=== PATIENT | female | born 1955 | race American Indian/Alaskan Native ===

== ENCOUNTER 2019-12-20 12:27 | Observation (INO) | payer BC, MEDICARE ==
--- NOTE | 2019-12-20 13:10 | Emergency Department Report ---
HPI - General Chief Complaint: Seizure Time Seen by Provider: 12/20/19 12:55 - HPI HPI: Room 4 The patient is a 64-year-old female present with a chief complaint of slurred speech. Patient was a her senior living when she reportedly appeared to have a localized seizure in the left upper extremity. The patient was found to have an Accu-Chek of 68 and reportedly had an SPO2 of 86% on room air. Patient was placed on 3 L nasal cannula by EMS. When asked how she is feeling the patient speech is mostly unintelligible Attempt to contact [facility] for more information/times was unsuccessful. When I called [phone] it went directly to voicemail and stated that the voicemail box was full. ED Past Medical Hx - Family History Family history: no significant - Social History Smoking Status: Never Smoker Substance Use Type: None ED Review of Systems ROS: Stated complaint: SEIZURE Other details as noted in HPI Neurological: other (Dysarthria) Physical Exam - Physical Exam Vital Signs: Vital Signs 12/20/19 12:38 Pulse Rate 88 Respiratory 24 Rate Blood Pressure 176/100 [Left] O2 Sat by Pulse 96 Oximetry Physical Exam: GENERAL: The patient is well-developed well-nourished woman sitting in stretcher with dysarthric speech but in no acute distress HEENT: Normocephalic. Atraumatic. Extraocular motions are intact. Patient has moist mucous membranes. NECK: Supple. Trachea midline CHEST/LUNGS: Clear to auscultation. There is no respiratory distress noted. HEART/CARDIOVASCULAR: Regular. There is no tachycardia. There is no gallop rub or murmur. ABDOMEN: Abdomen is soft, nontender. Patient has normal bowel sounds. There is no abdominal distention. SKIN: There is no rash. There is no edema. There is no diaphoresis. NEURO: The patient is awake, alert, and oriented. The patient is cooperative. Cranial nerves II through XII grossly intact. Patient exhibits greater difficulty raising right upper extremity above head when compared to the left. Moves bilateral lower extremities well. The patient has dysarthric speech MUSCULOSKELETAL: There is no evidence of acute injury. ED Course Vital Signs 12/20/19 12:38 Pulse Rate 88 Respiratory 24 Rate Blood Pressure 176/100 [Left] O2 Sat by Pulse 96 Oximetry ED Medical Decision Making - Lab Data Laboratory Tests 12/20/19 12/20/19 12/20/19 13:23 14:00 14:00 WBC 6.9 RBC 5.07 H Hgb 14.0 Hct 41.9 MCV 83 MCH 28 MCHC 34 RDW 15.1 Plt Count 296 Lymph % (Auto) 29.8 Branch % (Auto) 8.7 H Eos % (Auto) 0.6 Baso % (Auto) 3.0 H Lymph # 2.0 Branch # 0.6 Eos # 0.0 Baso # 0.2 H Seg Neutrophils % 57.9 Seg Neutrophils # 4.0 PT 12.4 INR 0.91 APTT 30.6 Thrombin Time 16.9 Sodium Potassium Chloride Carbon Dioxide Anion Gap BUN Creatinine Estimated GFR BUN/Creatinine Ratio Glucose POC Glucose 83 Calcium Total Creatine Kinase CK-MB (CK-2) CK-MB (CK-2) Rel Index Troponin T 12/20/19 14:00 WBC RBC Hgb Hct MCV MCH MCHC RDW Plt Count Lymph % (Auto) Branch % (Auto) Eos % (Auto) Baso % (Auto) Lymph # Branch # Eos # Baso # Seg Neutrophils % Seg Neutrophils # PT INR APTT Thrombin Time Sodium 141 Potassium 4.2 Chloride 102.8 Carbon Dioxide 26 Anion Gap 16 BUN 9 Creatinine 0.5 L Estimated GFR > 60 BUN/Creatinine Ratio 18 Glucose 81 POC Glucose Calcium 9.4 Total Creatine Kinase 85 CK-MB (CK-2) < 1.0 CK-MB (CK-2) Rel Index 1.1 Troponin T < 0.010 - EKG Data -: EKG Interpreted by Me EKG shows normal: sinus rhythm Rate: normal - EKG Data When compared to previous EKG there are: previous EKG unavailable Interpretation: other (No ischemic changes seen) - Differential Diagnosis CVA, Aditya's paralysis, seizure Critical care attestation.: If time is entered above; I have spent that time in minutes in the direct care of this critically ill patient, excluding procedure time. ED Disposition Clinical Impression: Stroke Disposition: DC-09 OP ADMIT IP TO THIS HOSP Is pt being admited?: Yes Does the pt Need Aspirin: Yes Condition: Fair Time of Disposition: 15:41 (Hospitalist paged (Dr Navarro))
[2019-12-20] MEDS ORDERED: levETIRAcetam 500 MG in DEXTROSE 5% IN WATER 100 ML IV ONE (13:32)
[2019-12-20] MEDS ORDERED: levETIRAcetam 1000 MG/NS 0.75% 1,000 MG/100 ML BAG IV ONE ×2 (13:32→23:00)
--- NOTE | 2019-12-20 13:35 | Emergency Department Report ---
HPI - General Chief Complaint: Seizure Time Seen by Provider: 12/20/19 12:55 - HPI HPI: [facility] Date of Service: 12/20/2019 13:00:45 Impression: Rule Out Acute Ischemic Stroke Comments/Sign-Out: Patients clinical features can be compatible with diagnosis of acute ischemic stroke however other vascular and non-vascular conditions that present with an acute neurological deficit simulating acute ischemic stroke is possible. Chief differential include: seizures and postictal paralysis toxic-metabolic disturbances Mechanism of Stroke: Not Clear Metrics: Last Known Well: Unknown [facility] Notification Time: 12/20/2019 13:00:11 Arrival Time: 12/20/2019 12:50:11 Stamp Time: 12/20/2019 13:00:45 Time First Login Attempt: 12/20/2019 13:02:57 Video Start Time: 12/20/2019 13:02:57 Symptoms: difficulty speaking, rt and and face weakness NIHSS Start Assessment Time: 12/20/2019 13:03:57 Patient is not a candidate for tPA. Patient was not deemed candidate for tPA thrombolytics because of Last Well Known Above 4.5 Hours. Video End Time: 12/20/2019 13:26:10 CT head was reviewed and results were: CTH shows large left temporal encphalomalacia and left frontal hypodensity. This seems chronic Clinical Presentation is not Suggestive of Large Vessel Occlusive Disease Radiologist was not called back for review of advanced imaging because NA ED Physician notified of diagnostic impression and management plan on 12/20/2019 13:28:10 Our recommendations are outlined below. Recommendations: Activate Stroke Protocol Admission/Order Set Stroke/Telemetry Floor Neuro Checks Bedside Swallow Eval DVT Prophylaxis IV Fluids, Normal Saline Head of Bed 30 Degrees Euglycemia and Avoid Hyperthermia (PRN Acetaminophen) Antiplatelet Therapy Recommended Keppra loading dose of 1500 mg IV-> 500 mg IV q8h Routine Consultation with Inhouse Neurology for Follow up Care Sign Out: Discussed with Emergency Department Provider History of Present Illness: Patient is a 64 year old Female. Patient was brought by EMS for symptoms of difficulty speaking, rt and and face weakness Patient seen in ED Information obtained from pt and nursing staff h/o prior CVA Chronology: Pt indicates, korey with fragmentory expression that her symptoms were present even yesterday before going to bed Pt lives in assisted living facility, At 6:00 am [facility] came to check on her and found that she had diffulty speaking It was suspected that pt was having seizure hence sent here EMS noted slurred speech en route WHen pt came to ED, it was noted that she had slurred speech, rt facial droop and rt arm drift rt facial droop and rt weakness LKW : unknown CTH shows large left temporal encphalomalacia and left frontal hypodensity. This seems chronic Medications: not available BP:159/87 Blood glucose:83 Last seen normal was beyond 4.5 hours of presentation. There is no history of hemorrhagic complications or intracranial hemorrhage. There is no history of Recent Anticoagulants. There is no history of recent major surgery. There is no history of recent stroke. Examination: 1A: Level of Consciousness - Alert; keenly responsive + 0 1B: Ask Month and Age - Aphasic + 2 1C: Blink Eyes & Squeeze Hands - Performs Both Tasks + 0 2: Test Horizontal Extraocular Movements - Normal + 0 3: Test Visual Rock - No Visual Loss + 0 4: Test Facial Palsy (Use Grimace if Obtunded) - Minor paralysis (flat nasolabial fold, smile asymmetry) + 1 5A: Test Left Arm Motor Drift - No Drift for 10 Seconds + 0 5B: Test Right Arm Motor Drift - Drift, but doesn't hit bed + 1 6A: Test Left Leg Motor Drift - No Drift for 5 Seconds + 0 6B: Test Right Leg Motor Drift - No Drift for 5 Seconds + 0 7: Test Limb Ataxia (FNF/Heel-Alfaro) - No Ataxia + 0 8: Test Sensation - Normal; No sensory loss + 0 9: Test Language/Aphasia - Severe Aphasia: Fragmentary Expression, Inference Needed, Cannot Identify Materials + 2 10: Test Dysarthria - Normal + 0 11: Test Extinction/Inattention - No abnormality + 0 NIHSS Score: 6 Patient/Family was informed the Neurology Consult would happen via TeleHealth consult by way of interactive audio and video telecommunications and consented to receiving care in this manner. Due to the immediate potential for life-threatening deterioration due to underlying acute neurologic illness, I spent 35 minutes providing critical care. This time includes time for face to face visit via telemedicine, review of medical records, imaging studies and discussion of findings with providers, the patient and/or family. Dr Alyse Uribe [facility] Case [id number] ED Past Medical Hx - Social History Smoking Status: Never Smoker Substance Use Type: None ED Review of Systems ROS: Stated complaint: SEIZURE Other details as noted in HPI Neurological: other (Dysarthria) Physical Exam - Physical Exam Vital Signs: Vital Signs 12/20/19 12:38 Pulse Rate 88 Respiratory 24 Rate Blood Pressure 176/100 [Left] O2 Sat by Pulse 96 Oximetry ED Course Vital Signs 12/20/19 12:38 Pulse Rate 88 Respiratory 24 Rate Blood Pressure 176/100 [Left] O2 Sat by Pulse 96 Oximetry Critical care attestation.: If time is entered above; I have spent that time in minutes in the direct care of this critically ill patient, excluding procedure time. ED Disposition Clinical Impression: Stroke Disposition: DC-09 OP ADMIT IP TO THIS HOSP Is pt being admited?: Yes Condition: Stable
--- NOTE | 2019-12-20 13:39 | Cat Scan Report ---
CT head/brain wo con INDICATION / CLINICAL INFORMATION: 64 years Female; Slurred speech. TECHNIQUE: Routine CT head without contrast. All CT scans at this location are performed using CT dos e reduction for ALARA by means of automated exposure control. COMPARISON: None. FINDINGS: BRAIN / INTRACRANIAL CONTENTS: Old, fairly prominent left parietal temporal MCA infarct suggested. Ar ea of old, cortical laminar necrosis seen in this region, which is calcified. Small, old branch infarcts are seen in both cerebral hemispheres superiorly-left frontal lobe and ant erior superior lobule on the right. Multiple lacunar type infarcts seen in the gangliocapsular regions bilaterally. Otherwise, no acute hemorrhage, mass effect, midline shift, hydrocephalus, or acute, large territoria l infarct. Mild cerebral atrophy. There are moderate areas of decreased attenuation in the white matter of the cerebral hemispheres, as well as the gangliocapsular regions. These are nonspecific findings and may be related to microangio katy (hypertension, diabetes, atherosclerosis), given the patient's age. It might be difficult to ev aluate for small areas of ischemia in these regions without diffusion imaging by MRI. Also, it would be difficult to evaluate for risa-infarct areas of ischemia or acute lacunar infarcts without diffusi on imaging in this setting, particularly without any prior exams for comparison. CRANIOCERVICAL JUNCTION: No significant abnormality. ORBITS: No significant abnormality of visualized orbits. SINUSES / MASTOIDS: No significant abnormality in the visualized paranasal sinuses or mastoid air tori ls. ADDITIONAL FINDINGS: Mild atherosclerotic disease is seen in the anterior circulation. IMPRESSION: 1. Multiple areas of old injury as described above. It would be difficult to evaluate for areas of ac lisa ischemia without diffusion imaging by MRI. 2. Otherwise, no focal mass, acute hemorrhage, hydrocephalus, or acute, large territorial infarct estephania reciated. This exam was performed as part of a code stroke protocol. The exam was completed on 12/20/2019 12:24 PM, central standard time. The exam was reviewed at 12:[address] Arias was notified at 12:33 PM. Signer Name: Blake Bolden MD, III Signed: 12/20/2019 1:34 PM Workstation Name: [id number]
[2019-12-20 14:50] LABS: Basophils # (Auto) 0.2 K/mm3 (0.0-0.1); Eosinophils % (Auto) 0.6 % (0.0-4.3); Hematocrit 41.9 % (30.3-42.9); Lymphocytes % (Auto) 29.8 % (13.4-35.0); Mean Corpuscular HGB Conc 34 % (30-34); Mean Corpuscular Volume 83 fl (79-97); Monocytes # (Auto) 0.6 K/mm3 (0.0-0.8); Monocytes % (Auto) 8.7 % (0.0-7.3); Platelet Count 296 K/mm3 (140-440); Red Blood Count 5.07 M/mm3 (3.65-5.03); Red Cell Distribution Width 15.1 % (13.2-15.2)
[2019-12-20 15:09] LABS: INR 0.91 (0.87-1.13)
[2019-12-20 15:10] LABS: Partial Thromboplastin Time 30.6 Sec. (24.2-36.6); Thrombin Time 16.9 Sec. (15.1-19.6)
[2019-12-20 15:14] LABS: Blood Urea Nitrogen 9 mg/dL (7-17); Calcium 9.4 mg/dL (8.4-10.2); Hemolysis Index 37
[2019-12-20] MEDS ORDERED: levETIRAcetam 1,500 MG in DEXTROSE 5% IN WATER 100 ML IV ONE (15:15)
[2019-12-20 15:21] LABS: Creatine Kinase MB < 1.0 ng/mL (0.0-4.0)
[2019-12-20 15:22] LABS: BUN/Creatinine Ratio 18
--- NOTE | 2019-12-20 22:13 | History and Physical Report ---
History of Present Illness Date of examination: 12/20/19 Date of admission: 12/20/19 15:47 Chief complaint: Seizures and altered sensorium History of present illness: 54-year-old -Algerian female with history of seizures presents with a dysarthria and slurred speech and possible postictal state. Patient apparently had a localized seizure in the left side in the [facility]. Patient is oxygen saturation of 86% on room air and her Accu-Chek was 68. During my examination patient is postictal. No active seizures. No dysarthria. past medical history past surgical history - Family History Family history: no significant - Social History Smoking Status: Never Smoker Substance Use Type: None Review of Systems ROS: Constitutional no weight loss or weight gain no fever or chills HEENT no sore throat no post nasal drip no diplopia Neck no neck stiffness no lymph gland enlargement Chest and lungs no shortness of breath cough or wheezing CVS no chest pain no diaphoresis no palpitations GI no nausea no vomiting no diarrhea Genitourinary system no dysuria no flank pain Musculoskeletal system no muscle pains no joint pains [employer] seizures and dysarthria Skin no rash no itching Psychiatric no depression no homicidal or suicidal tendencies Hematologic no lymphedema or bruising Endocrine no polydipsia no polyuria no cold intolerance no heat intolerance Medications and Allergies Allergies Allergy/AdvReac Type Severity Reaction Status Date / Time Unable to Assess Allergy Unverified 12/20/19 16:00 Home Medications Medication Instructions Recorded Confirmed Last Taken Type ALPRAZolam [Xanax TAB] 0.5 mg PO BID 12/20/19 12/20/19 Unknown History Acetaminophen [Non-Aspirin Pain 1,000 mg PO Q6HR PRN 12/20/19 12/20/19 Unknown History Relief] Aspirin 325 mg PO QDAY 12/20/19 12/20/19 Unknown History AtorvaSTATin [Lipitor] 40 mg PO QHS 12/20/19 12/20/19 Unknown History Lansoprazole [Prevacid] 15 mg PO QDAY 12/20/19 12/20/19 Unknown History Metoprolol Succinate [Toprol Xl] 25 mg PO DAILY 12/20/19 12/20/19 Unknown History Verapamil ER [Calan Sr] 180 mg PO QHS 12/20/19 12/20/19 Unknown History amLODIPine [Norvasc] 5 mg PO DAILY 12/20/19 12/20/19 Unknown History levETIRAcetam [Keppra] 1,000 mg PO BID 12/20/19 12/20/19 Unknown History Exam - Constitutional Vitals: Temp Pulse Resp BP Pulse Ox 99.7 F H 60 18 142/78 98 12/20/19 19:01 12/20/19 19:16 12/20/19 19:16 12/20/19 19:16 12/20/19 19:16 General appearance: Present: no acute distress, well-nourished - EENT Eyes: Present: PERRL ENT: hearing intact, clear oral mucosa - Neck Neck: Present: supple, normal ROM - Respiratory Respiratory effort: normal Respiratory: bilateral: CTA - Cardiovascular Heart rate: 76 Rhythm: regular Heart Sounds: Present: S1 & S2. Absent: rub, click - Extremities Extremities: no ischemia, pulses intact, pulses symmetrical, No edema Peripheral Pulses: within normal limits - Abdominal General gastrointestinal: Present: soft, non-tender, non-distended, normal bowel sounds Female genitourinary: Present: normal - Integumentary Integumentary: Present: clear, warm, dry - Musculoskeletal Musculoskeletal: strength equal bilaterally, other (No focal weakness or dysarthria) - Psychiatric Psychiatric: appropriate mood/affect, intact judgment & insight - Neurologic Neurologic: CNII-XII intact, moves all extremities - Allied Health Allied health notes reviewed: nursing, case management HEART Score - HEART Score Troponin: Troponin T < 0.010 ng/mL (0.00-0.029) 12/20/19 14:00 Results - Labs CBC & Chem 7: 12/21/19 06:56 12/21/19 06:56 Labs: Laboratory Last Values WBC 6.9 K/mm3 (4.5-11.0) 12/20/19 14:00 RBC 5.07 M/mm3 (3.65-5.03) H 12/20/19 14:00 Hgb 14.0 gm/dl (10.1-14.3) 12/20/19 14:00 Hct 41.9 % (30.3-42.9) 12/20/19 14:00 MCV 83 fl (79-97) 12/20/19 14:00 MCH 28 pg (28-32) 12/20/19 14:00 MCHC 34 % (30-34) 12/20/19 14:00 RDW 15.1 % (13.2-15.2) 12/20/19 14:00 Plt Count 296 K/mm3 (140-440) 12/20/19 14:00 Lymph % (Auto) 29.8 % (13.4-35.0) 12/20/19 14:00 [place] % (Auto) 8.7 % (0.0-7.3) H 12/20/19 14:00 Eos % (Auto) 0.6 % (0.0-4.3) 12/20/19 14:00 Baso % (Auto) 3.0 % (0.0-1.8) H 12/20/19 14:00 Lymph # 2.0 K/mm3 (1.2-5.4) 12/20/19 14:00 [place] # 0.6 K/mm3 (0.0-0.8) 12/20/19 14:00 Eos # 0.0 K/mm3 (0.0-0.4) 12/20/19 14:00 Baso # 0.2 K/mm3 (0.0-0.1) H 12/20/19 14:00 Seg Neutrophils % 57.9 % (40.0-70.0) 12/20/19 14:00 Seg Neutrophils # 4.0 K/mm3 (1.8-7.7) 12/20/19 14:00 PT 12.4 Sec. (12.2-14.9) 12/20/19 14:00 INR 0.91 (0.87-1.13) 12/20/19 14:00 APTT 30.6 Sec. (24.2-36.6) 12/20/19 14:00 Thrombin Time 16.9 Sec. (15.1-19.6) 12/20/19 14:00 Sodium 141 mmol/L (137-145) 12/20/19 14:00 Potassium 4.2 mmol/L (3.6-5.0) 12/20/19 14:00 Chloride 102.8 mmol/L (98-107) 12/20/19 14:00 Carbon Dioxide 26 mmol/L (22-30) 12/20/19 14:00 Anion Gap 16 mmol/L 12/20/19 14:00 BUN 9 mg/dL (7-17) 12/20/19 14:00 Creatinine 0.5 mg/dL (0.7-1.2) L 12/20/19 14:00 Estimated GFR > 60 ml/min 12/20/19 14:00 BUN/Creatinine Ratio 18 % 12/20/19 14:00 Glucose 81 mg/dL (65-100) 12/20/19 14:00 POC Glucose 83 (70-105) 12/20/19 13:23 Calcium 9.4 mg/dL (8.4-10.2) 12/20/19 14:00 Total Creatine Kinase 85 units/L (30-135) 12/20/19 14:00 CK-MB (CK-2) < 1.0 ng/mL (0.0-4.0) 12/20/19 14:00 CK-MB (CK-2) Rel Index 1.1 (0-4) 12/20/19 14:00 Troponin T < 0.010 ng/mL (0.00-0.029) 12/20/19 14:00 Short CBC 12/20/19 12/21/19 Range/Units 14:00 06:56 WBC 6.9 8.4 (4.5-11.0) K/mm3 Hgb 14.0 13.1 (10.1-14.3) gm/dl Hct 41.9 39.1 (30.3-42.9) % Plt Count 296 271 (140-440) K/mm3 BMP 12/20/19 12/21/19 14:00 06:56 Sodium 141 143 Potassium 4.2 4.2 Chloride 102.8 104.3 Carbon Dioxide 26 26 BUN 9 15 Creatinine 0.5 L 0.8 D Glucose 81 87 Calcium 9.4 9.2 Cardiac Enzymes 12/20/19 Range/Units 14:00 Total Creatine Kinase 85 (30-135) units/L CK-MB (CK-2) < 1.0 (0.0-4.0) ng/mL Troponin T < 0.010 (0.00-0.029) ng/mL Liver Function 12/21/19 Range/Units 06:56 Total Bilirubin 0.40 (0.1-1.2) mg/dL AST 18 (5-40) units/L ALT 12 (7-56) units/L Alkaline Phosphatase 122 (35-129) units/L Albumin 3.6 L (3.9-5) g/dL - Imaging and Cardiology EKG: report reviewed CT Scan - head: report reviewed (No acute findings) Kaplan/IV: Voiding Method External Female Catheter IV Catheter Type [Left INT / Saline Lock Antecubital] Assessment and Plan Advance Directives: Yes (Full code) VTE prophylaxis?: Chemical Plan of care discussed with patient/family: Yes - Patient Problems (1) Seizures Current Visit: Yes Status: Acute Plan to address problem: Patient initiated on IV Keppra MRI to rule out any infarct (2) Hypertension Current Visit: Yes Status: Chronic Qualifiers: Hypertension type: essential hypertension Qualified Code(s): I10 - Essential (primary) hypertension Plan to address problem: Continue antihypertensives (3) GERD (gastroesophageal reflux disease) Current Visit: Yes Status: Chronic Qualifiers: Esophagitis presence: without esophagitis Qualified Code(s): K21.9 - Gastro-esophageal reflux disease without esophagitis Plan to address problem: Continue PPIs (4) Hyperlipidemia Current Visit: Yes Status: Chronic Qualifiers: Hyperlipidemia type: mixed hyperlipidemia Qualified Code(s): E78.2 - Mixed hyperlipidemia Plan to address problem: Continue statins (5) DVT prophylaxis Current Visit: Yes Status: Acute Plan to address problem: Heparin and GI prophylaxis
[2019-12-20] MEDS ORDERED: ACETAMINOPHEN 325 MG TAB PO PRN (22:14)
[2019-12-20] MEDS ORDERED: ONDANSETRON 4 MG/2 ML INJ IV PRN (22:14)
[2019-12-20] MEDS ORDERED: oxyCODONE /ACETAMINOPHEN 5-325MG TAB PO PRN (22:14)
[2019-12-21 07:31] LABS: Hematocrit 39.1 % (30.3-42.9); Hemoglobin 13.1 gm/dl (10.1-14.3); Mean Corpuscular HGB Conc 34 % (30-34); Mean Corpuscular Volume 83 fl (79-97); Red Blood Count 4.68 M/mm3 (3.65-5.03); Red Cell Distribution Width 15.6 % (13.2-15.2)
[2019-12-21 07:32] LABS: Platelet Count 271 K/mm3 (140-440)
[2019-12-21 07:40] LABS: Basophils # (Auto) 0.1 K/mm3 (0.0-0.1); Basophils % (Auto) 0.7 % (0.0-1.8); Eosinophils # (Auto) 0.1 K/mm3 (0.0-0.4); Eosinophils % (Auto) 1.2 % (0.0-4.3); Lymphocytes # (Auto) 3.7 K/mm3 (1.2-5.4); Lymphocytes % (Auto) 41.9 % (13.4-35.0); Monocytes % (Auto) 11.3 % (0.0-7.3)
[2019-12-21 07:51] LABS: Alanine Aminotransferase 12 units/L (7-56); Albumin 3.6 g/dL (3.9-5); BUN/Creatinine Ratio 19; Blood Urea Nitrogen 15 mg/dL (7-17); Calcium 9.2 mg/dL (8.4-10.2); Hemolysis Index 73
[2019-12-21] MEDS ORDERED: ACETAMINOPHEN 500 MG TAB PO PRN (09:00)
[2019-12-21] MEDS ORDERED: levETIRAcetam 500 MG/5 ML ORAL LIQD PO SCH (10:00)
[2019-12-21] MEDS ORDERED: levETIRAcetam 1,000 MG in DEXTROSE 5% IN WATER 100 ML IV SCH (10:00)
[2019-12-21] MEDS ORDERED: ALPRAZolam 0.5 MG TAB PO SCH (10:00)
[2019-12-21] MEDS ORDERED: ASPIRIN 325 MG TAB PO SCH (10:00)
[2019-12-21] MEDS ORDERED: FAMOTIDINE 20 MG TAB PO SCH (10:00)
[2019-12-21] MEDS ORDERED: METOPROLOL SUCCINATE XL 25 MG TAB PO SCH (10:00)
[2019-12-21] MEDS ORDERED: LANSOPRAZOLE 15 MG PO SCH (10:00)
[2019-12-21] MEDS ORDERED: HEPARIN 5,000 UNIT/1 ML VIAL SUB-Q SCH (10:00)
[2019-12-21] MEDS ORDERED: amLODIPine 5 MG TAB PO SCH (10:00)
[2019-12-21] MEDS ORDERED: PANTOPRAZOLE 40 MG TAB PO SCH (11:00)
--- NOTE | 2019-12-21 14:51 | Consultation ---
History of Present Illness Consult date: 12/21/19 Reason for Consult: Seizure Chief complaint: Seizure History of present illness: Patient is a 64 y/o woman w/ a h/o stroke w/ residual aphasia, h/o seizures, HTN, HLD. She is a long term resident, and was noted to have a seizure, and therefore EMS was called. She was noted to have glucose of 68 at the time, and Sp02 of 86%. Patient was placed on nasal canula oxygen by EMS, and was also noted to have slurred speech, twitching of right upper extremity, and RUE weakness. Patient states that she has Rt. sided weakness at baseline. Past History Past Medical History: other (h/o stroke w/ residual aphasia, h/o seizures, HTN, HLD) Social history: other (Lives at long term) Family history: hypertension (Mother) Medications and Allergies Allergies Allergy/AdvReac Type Severity Reaction Status Date / Time Unable to Assess Allergy Unverified 12/20/19 16:00 Home Medications Medication Instructions Recorded Confirmed Last Taken Type ALPRAZolam [Xanax TAB] 0.5 mg PO BID 12/20/19 12/20/19 Unknown History Acetaminophen [Non-Aspirin Pain 1,000 mg PO Q6HR PRN 12/20/19 12/20/19 Unknown History Relief] Aspirin 325 mg PO QDAY 12/20/19 12/20/19 Unknown History AtorvaSTATin [Lipitor] 40 mg PO QHS 12/20/19 12/20/19 Unknown History Lansoprazole [Prevacid] 15 mg PO QDAY 12/20/19 12/20/19 Unknown History Metoprolol Succinate [Toprol Xl] 25 mg PO DAILY 12/20/19 12/20/19 Unknown History Verapamil ER [Calan Sr] 180 mg PO QHS 12/20/19 12/20/19 Unknown History amLODIPine [Norvasc] 5 mg PO DAILY 12/20/19 12/20/19 Unknown History levETIRAcetam [Keppra] 1,000 mg PO BID 12/20/19 12/20/19 Unknown History Active Meds: Active Medications Acetaminophen (Tylenol) 650 mg PO Q4H PRN PRN Reason: Pain MILD(1-3)/Fever >100.5/MENDEZ Alprazolam (Xanax) 0.5 mg PO BID [facility] Last Admin: 12/21/19 11:25 Dose: 0.5 mg Documented by: Aspirin (Aspirin) 325 mg PO QDAY [facility] Last Admin: 12/21/19 11:04 Dose: 325 mg Documented by: Atorvastatin Calcium (Lipitor) 40 mg PO QHS [facility] Heparin Sodium (Porcine) (Heparin) 5,000 unit SUB-Q Q12HR [facility] Last Admin: 12/21/19 11:07 Dose: 5,000 unit Documented by: Levetiracetam (Keppra) 1,000 mg PO BID [facility] Last Admin: 12/21/19 11:04 Dose: 1,000 mg Documented by: Metoprolol Succinate (Metoprolol Xl) 25 mg PO DAILY [facility] Last Admin: 12/21/19 11:05 Dose: 25 mg Documented by: Ondansetron HCl (Zofran) 4 mg IV Q8H PRN PRN Reason: Nausea And Vomiting Oxycodone/Acetaminophen (Percocet 5/325) 1 tab PO Q6H PRN PRN Reason: Pain, Moderate (4-6) Pantoprazole Sodium (Protonix) 40 mg PO DAILY [facility] Last Admin: 12/21/19 11:25 Dose: 40 mg Documented by: Sodium Chloride (Sodium Chloride Flush Syringe 10 Ml) 10 ml IV BID [facility] Last Admin: 12/21/19 11:08 Dose: 10 ml Documented by: Sodium Chloride (Sodium Chloride Flush Syringe 10 Ml) 10 ml IV PRN PRN PRN Reason: LINE FLUSH Verapamil HCl (Calan Sr) 180 mg PO QHS [facility] Review of Systems All systems: negative Neurological: seizures, change in speech Physical Examination - Vital Signs Vital Signs: Vital Signs Pulse Resp BP Pulse Ox 88 24 176/100 96 12/20/19 12:38 12/20/19 12:38 12/20/19 12:38 12/20/19 12:38 - Physical Exam Narrative exam: Patient is alert, awake, oriented to self, noted to have significant aphasia which is her baseline, follows 2-step commands. No dysarthria noted. Noted to have significant aphasia. PERRL, EOMI, VFF to threat, tongue midline, bilaterally intact to LT, no facial weakness noted. 5/5 strength in all extremities. Bilaterally intact light touch. Bilaterally intact to FTN and HTS. Results - Laboratory Findings CBC and BMP: 12/21/19 06:56 12/21/19 06:56 Abnormal Lab Findings: Abnormal Labs 12/20/19 12/20/19 12/21/19 14:00 14:00 06:56 RBC 5.07 H RDW 15.6 H Lymph % (Auto) 41.9 H Kaufman % (Auto) 8.7 H 11.3 H Baso % (Auto) 3.0 H Kaufman # 1.0 H Baso # 0.2 H Creatinine 0.5 L Albumin 12/21/19 06:56 RBC RDW Lymph % (Auto) Kaufman % (Auto) Baso % (Auto) Kaufman # Baso # Creatinine Albumin 3.6 L Assessment and Plan Patient is a 64 y/o woman w/ a h/o stroke w/ residual aphasia, h/o seizures, HTN, HLD, who p/w a seizure. According to the patient's clinical findings, it is likely that she has had seizures which caused upper extremity twitching. Plan: 1. Seizures: - CT head: enhcephalomalacia noted in left hemisphere. No acute abnormalities. - Patient is back to baseline today. - Increase keppra to 1500mg BID. - No driving until cleared by DMV/DPS. Given patient's h/o large infarct, she may not be able to drive due to significant neurologic deficits at baseline. - If patient has a seizure lasting >2 minutes, recommend giving ativan 1mg IV stat. If seizure does not resolve within 2 minutes, can repeat x1. Please call primary team and neurology stat if patient has a seizure. - UA pending. If patient is found to have a UTI, further treatment per primary team. - Attempted to call patient's brother, however he did not answer the phone. - Will sign off, as patient is back at baseline, and treatment plan is in place. Thank you for allowing me to take part in the care of this patient. Toby Garcias MD Neurology This clinical encounter was provided via live telemedicine platform. Consultative service was provided for neurology to support local providers. The Acute Teleneurology team should be contacted with any neurologic worsening or clinical changes, new test results, or new patient history that is reported to or discovered by the local team following completion of the teleneurology consultation, specifically that which has the potential to impact the consultative recommendations. Patient/Family was informed the Neurology Consult would happen via TeleHealth consult by way of interactive audio and video telecommunications and consented to receiving care in this manner. Due to the potential for life-threatening deterioration due to underlying neurologic illness, and limited resources available for patient care, teleme dicine was used as means of patient care. Telemedicine consultation is limited in the extent of physical exam that can be virtually provided. Time spent evaluating patient includes time for face to face visit via telemedicine, review of medical records, imaging studies and discussion of findings with providers, the patient and/or family.
--- NOTE | 2019-12-21 16:34 | Magnetic Resonance Report ---
MRI BRAIN 12/21/2019 INDICATION / CLINICAL INFORMATION: Seizures and dysarthria. TECHNIQUE: Multiplanar, multisequence MR images of the brain were obtained. COMPARISON: CT brain 12/20/2019 FINDINGS: BRAIN / INTRACRANIAL CONTENTS: Unenhanced MR images of the brain were obtained and compared to the [facility] CT from 12/20/2019. Again seen is the prominent area of encephalomalacia in the left temporal an d parietal lobe, consistent with prior ischemic change. There is signal changes associated with the p reviously seen area of cortical calcification, which shows intermediate signal on T1-weighted images, decreased signal on T2-weighted and gradient echo weighted sequence. Ventricles and sulci are prominent in size, consistent with diffuse cerebral atrophy. Diffuse chronic white matter T2 weighted signal changes present. There is no evidence of acute ischemic injury, hemorrhage, or mass. There are no abnormal extra-axial fluid collections. EXTRACRANIAL: Incidental note is made of an empty sella, generally considered to be of no clinical si gnificance. CRANIOCERVICAL JUNCTION: No significant abnormality. VASCULAR FLOW-VOIDS: No significant abnormality. IMPRESSION: No acute abnormality. Extensive chronic encephalomalacia with signal change corresponding to the area of calcification seen on CT. Signer Name: Jose Francisco Moon MD Signed: 12/21/2019 4:30 PM Workstation Name: [email or web address] [id number]
--- NOTE | 2019-12-21 18:35 | Discharge Summary ---
Providers - Providers Date of Admission: 12/20/19 15:47 Date of discharge: 12/21/19 Attending physician: DOUGLAS WISE 12/20/19 22:14 Consult to Physician [CONS] Routine Comment: Consulting Provider: OSCAR DAIGLE Physician Instructions: Reason For Exam: AMS/Seizure Primary care physician: HOME CARE SCHEDULER Hospitalization Condition: Fair Hospital course: 54-year-old -[place] female with history of seizures presents with a dysarthria and slurred speech and possible postictal state. Patient apparently had a localized seizure in the left side in the [facility]. Patient is oxygen saturation of 86% on room air and her Accu-Chek was 68. During my examination patient is postictal. No active seizures. No dysarthria. (1) Seizures Current Visit: Yes Status: Acute Plan to address problem: Patient initiated on IV Keppra MRI to rule out any infarct - CT head: enhcephalomalacia noted in left hemisphere. No acute abnormalities. - Patient is back to baseline today. - Increase keppra to 1500mg BID. - No driving until cleared by DMV/DPS. Given patient's h/o large infarct, she may not be able to drive due to significant neurologic deficits at baseline. - If patient has a seizure lasting >2 minutes, recommend giving ativan 1mg IV stat. If seizure does not resolve within 2 minutes, can repeat x1. Please call primary team and neurology stat if patient has a seizure. - UA pending. If patient is found to have a UTI, further treatment per primary team. - Attempted to call patient's brother, however he did not answer the phone. - MRI --not done No acute CVA (2) Hypertension Current Visit: Yes Status: Chronic Qualifiers: Hypertension type: essential hypertension Qualified Code(s): I10 - Essentia l (primary) hypertension Plan to address problem: Continue antihypertensives (3) GERD (gastroesophageal reflux disease) Current Visit: Yes Status: Chronic Qualifiers: Esophagitis presence: without esophagitis Qualified Code(s): K21.9 - Gastro-esophageal reflux disease without esophagitis Plan to address problem: Continue PPIs (4) Hyperlipidemia Current Visit: Yes Status: Chronic Qualifiers: Hyperlipidemia type: mixed hyperlipidemia Qualified Code(s): E78.2 - Mixed hyperlipidemia Plan to address problem: Continue statins Seizures: Disposition: DC/TX-70 ANOTHER TYPE HLTHCARE - Discharge Diagnoses (1) Seizures Status: Acute (2) Hypertension Status: Chronic Qualifiers: Hypertension type: essential hypertension Qualified Code(s): I10 - Essential (primary) hypertension (3) GERD (gastroesophageal reflux disease) Status: Chronic Qualifiers: Esophagitis presence: without esophagitis Qualified Code(s): K21.9 - Gastro-esophageal reflux disease without esophagitis (4) Hyperlipidemia Status: Chronic Qualifiers: Hyperlipidemia type: mixed hyperlipidemia Qualified Code(s): E78.2 - Mixed hyperlipidemia (5) DVT prophylaxis Status: Acute Core Measure Documentation - Palliative Care Palliative Care/ Comfort Measures: Not Applicable - Core Measures Any of the following diagnoses?: none Exam - Constitutional Vitals: Temp Pulse Resp BP Pulse Ox 99.3 F 54 L 17 120/63 100 12/21/19 11:36 12/21/19 17:32 12/21/19 11:36 12/21/19 11:36 12/21/19 11:36 General appearance: Present: no acute distress, well-nourished - EENT Eyes: Present: PERRL ENT: hearing intact, clear oral mucosa - Neck Neck: Present: supple, normal ROM - Respiratory Respiratory effort: normal Respiratory: bilateral: CTA - Cardiovascular Heart rate: 78 Rhythm: regular Heart Sounds: Present: S1 & S2. Absent: rub, click - Extremities Extremities: pulses symmetrical, No edema Peripheral Pulses: within normal limits - Abdominal General gastrointestinal: Present: soft, non-tender, non-distended, normal bowel sounds Female genitourinary: Present: normal - Rectal Rectal Exam: deferred - Integumentary Integumentary: Present: clear, warm, dry - Musculoskeletal Musculoskeletal: gait normal, strength equal bilaterally - Psychiatric Psychiatric: appropriate mood/affect, intact judgment & insight - Neurologic Neurologic: CNII-XII intact, moves all extremities Plan Activity: no restrictions Diet: low cholesterol, low salt Follow up with: PRIMARY MD ANKUR [Primary Care Provider] - 7 Days
[2019-12-21 19:11] LABS: Bacteria,Urine 1+ /HPF (Negative); Bilirubin,Urine NEG (Negative); Blood,Urine NEG (Negative); Color,Urine Yellow (Yellow); Mucus,Urine 1+ /HPF; Protein,Urine <15 mg/dL mg/dL (Negative)
[2019-12-21 20:30] VITALS: BP 108/53
[2019-12-21] MEDS ORDERED: VERAPAMIL ER 180 MG TAB PO SCH (22:00)
[2019-12-21] MEDS ORDERED: levETIRAcetam 500 MG TAB PO SCH (22:00)
== END 2019-12-21 20:15 | disposition other institution (70) ==
LOC: ED 12:27 → 4A 15:47 → INTOOBSV 15:47 → 4A 17:03
PROVIDERS: ADMIT Internal Medicine; ATTEND Internal Medicine
DX: R56.9 Unspecified convulsions (principal); I10 Essential (primary) hypertension; I63.9 Cerebral infarction, unspecified; R29.706 NIHSS score 6; K21.9 Gastro-esophageal reflux disease without esophagitis; E78.5 Hyperlipidemia, unspecified; Z79.82 Long term (current) use of aspirin; Z79.899 Other long term (current) drug therapy
CPT/HCPCS: 36415; 70450; 70551; 80048; 80053; 81001; 82550; 82553; 82962; 83036; 84484; 85007; 85025; 85610; 85670; 85730; 87086; 93005; 96365; 96366; 96372; 99291; G0378; J1644; J1953

== ENCOUNTER 2020-02-25 18:35 | Emergency (ER) | payer BC ==
[2020-02-25] MEDS ORDERED: SODIUM CHLORIDE 0.9% 500 ML 500 ML IV ONE ×2 (21:22→22:46)
[2020-02-25] MEDS ORDERED: ONDANSETRON 4 MG/2 ML INJ IV ONE (21:22)
--- NOTE | 2020-02-25 21:22 | Emergency Department Report ---
ED N/V/D HPI - General Stated complaint: VOMITING PUI?: No Time Seen by Provider: 02/25/20 21:18 Source: patient Mode of arrival: Stretcher Limitations: No Limitations - History of Present Illness Initial comments: This is a 64-year-old female with history of dementia, CVA, seizure, hypertension, GERD, hyperlipidemia with right-sided hemiplegia who presents with nausea vomiting for 1 day. Patient is unable to give much history. When asked if she is in pain she replies "yes". However she is unable to provide location of pain. She lives at assisted living [facility] Medications Alprazolam Amlodipine Aspirin Atorvastatin Lansoprazole Levetiracetam Metoprolol Verapamil PCP Dr. Doris De [place] phone #[phone] MD complaint: nausea, vomiting -: days(s) (1) Severity: mild Quality: aching Consistency: intermittent Improves with: none Worsens with: none Associated Symptoms: other (History limited due to dementia) - Related Data Home Medications Medication Instructions Recorded Confirmed Last Taken ALPRAZolam [Xanax TAB] 0.5 mg PO BID 12/20/19 12/20/19 Unknown AtorvaSTATin [Lipitor] 40 mg PO QHS 12/20/19 12/20/19 Unknown Lansoprazole [Prevacid] 15 mg PO QDAY 12/20/19 12/20/19 Unknown amLODIPine 5 mg PO DAILY 12/20/19 12/20/19 Unknown Previous Rx's Medication Instructions Recorded Last Taken Type ALPRAZolam [Xanax TAB] 0.5 mg PO BID tablet 12/21/19 Unknown Rx Aspirin 325 mg PO QDAY tablet 12/21/19 Unknown Rx Metoprolol Xl [Metoprolol 25 mg PO DAILY tablet 12/21/19 Unknown Rx SUCCINATE ER TAB] Pantoprazole [Protonix TAB] 40 mg PO DAILY tablet 12/21/19 Unknown Rx Verapamil ER [Calan SR] 180 mg PO QHS tablet 12/21/19 Unknown Rx levETIRAcetam [Keppra] 1,500 mg PO BID 60 Days 12/21/19 Unknown Rx Ondansetron [Zofran Odt] 1 tab PO Q8HR PRN #5 tab.rapdis 02/26/20 Unknown Rx Allergies Allergy/AdvReac Type Severity Reaction Status Date / Time No Known Allergies Allergy Unverified 02/25/20 22:59 ED Review of Systems ROS: Stated complaint: VOMITING Other details as noted in HPI Comment: Unobtainable due to pts medical conditions (History limited due to dementia) ED Past Medical Hx - Past Medical History Previous Medical History?: Yes Hx Hypertension: Yes Hx CVA: Yes Hx Seizures: Yes - Social History Smoking Status: Never Smoker - Medications Home Medications: Home Medications Medication Instructions Recorded Confirmed Last Taken Type ALPRAZolam [Xanax TAB] 0.5 mg PO BID 12/20/19 12/20/19 Unknown History AtorvaSTATin [Lipitor] 40 mg PO QHS 12/20/19 12/20/19 Unknown History Lansoprazole [Prevacid] 15 mg PO QDAY 12/20/19 12/20/19 Unknown History amLODIPine 5 mg PO DAILY 12/20/19 12/20/19 Unknown History ALPRAZolam [Xanax TAB] 0.5 mg PO BID tablet 12/21/19 Unknown Rx Aspirin 325 mg PO QDAY tablet 12/21/19 Unknown Rx Metoprolol Xl [Metoprolol 25 mg PO DAILY tablet 12/21/19 Unknown Rx SUCCINATE ER TAB] Pantoprazole [Protonix TAB] 40 mg PO DAILY tablet 12/21/19 Unknown Rx Verapamil ER [Calan SR] 180 mg PO QHS tablet 12/21/19 Unknown Rx levETIRAcetam [Keppra] 1,500 mg PO BID 60 Days 12/21/19 Unknown Rx Ondansetron [Zofran Odt] 1 tab PO Q8HR PRN #5 tab.rapdis 02/26/20 Unknown Rx ED Physical Exam - General Limitations: Other (History of dementia) General appearance: alert, in no apparent distress, other (Talkative, oriented to name only) - Head Head exam: Present: atraumatic, normocephalic - Eye Eye exam: Present: normal appearance - ENT ENT exam: Present: mucous membranes moist - Neck Neck exam: Present: normal inspection, full ROM - Respiratory Respiratory exam: Present: normal lung sounds bilaterally. Absent: respiratory distress, wheezes, rales, rhonchi - Cardiovascular Cardiovascular Exam: Present: regular rate, normal rhythm, normal heart sounds. Absent: systolic murmur, diastolic murmur, rubs, gallop - GI/Abdominal GI/Abdominal exam: Present: soft, normal bowel sounds. Absent: distended, tenderness, guarding, rebound - Extremities Exam Extremities exam: Present: normal inspection - Neurological Exam Neurological exam: Present: alert, other (Oriented to name only) - Psychiatric Psychiatric exam: Present: normal mood, flat affect - Skin Skin exam: Present: warm, dry, intact, normal color. Absent: rash ED Medical Decision Making - Lab Data Result diagrams: 02/25/20 21:25 02/25/20 21:25 - Radiology Data Radiology results: report reviewed CT abdomen pelvis: No acute abnormality according to radiology report, there is advanced degenerative changes in the right hip, no acute skeletal lesions - Medical Decision Making This is a 64-year-old female with history of dementia who presents with reported nausea vomiting. Vital signs are stable. CBC chemistry unremarkable. CT abdomen pelvis without acute abnormality. No fever to indicate severe infection. No indication of obstruction. Likely food intolerance or food poisoning. Patient prescribed Zofran and discharged back to home. Critical care attestation.: If time is entered above; I have spent that time in minutes in the direct care of this critically ill patient, excluding procedure time. ED Disposition Clinical Impression: GERD (gastroesophageal reflux disease), Vomiting Disposition: DC-01 TO HOME OR SELFCARE Is pt being admited?: No Does the pt Need Aspirin: No Condition: Stable Prescriptions: Ondansetron [Zofran Odt] 1 tab PO Q8HR PRN #5 tab.rapdis PRN Reason: nausea/vomiting
[2020-02-25 21:50] LABS: Basophils % (Auto) 0.6 % (0.0-1.8); Eosinophils # (Auto) 0.1 K/mm3 (0.0-0.4); Eosinophils % (Auto) 1.1 % (0.0-4.3); Hematocrit 41.5 % (30.3-42.9); Lymphocytes # (Auto) 3.3 K/mm3 (1.2-5.4); Lymphocytes % (Auto) 45.1 % (13.4-35.0); Mean Corpuscular HGB Conc 34 % (30-34); Mean Corpuscular Volume 85 fl (79-97); Monocytes # (Auto) 0.7 K/mm3 (0.0-0.8); Monocytes % (Auto) 8.9 % (0.0-7.3); Platelet Count 305 K/mm3 (140-440); Red Blood Count 4.91 M/mm3 (3.65-5.03); Red Cell Distribution Width 14.6 % (13.2-15.2)
[2020-02-25 22:08] LABS: Alanine Aminotransferase 16 units/L (7-56); Albumin 3.9 g/dL (3.9-5); Blood Urea Nitrogen 8 mg/dL (7-17); Calcium 9.1 mg/dL (8.4-10.2); Hemolysis Index 14
[2020-02-25 22:09] LABS: BUN/Creatinine Ratio 13; Bilirubin,Direct < 0.2 mg/dL (0-0.2)
[2020-02-26 03:52] VITALS: BP 111/65
--- NOTE | 2020-02-28 12:20 | Cat Scan Report ---
CT abdomen pelvis w con INDICATION: Abdominal Pain. TECHNIQUE: All CT scans at this location are performed using CT dose reduction for ALARA by means of automated e xposure control. COMPARISON: None available. FINDINGS: Lung bases are clear. Gallbladder is mostly collapsed, with no obvious stones. Liver, spleen, pancrea s, kidneys and adrenals are negative on this noncontrast exam. Abdominal aorta is normal in size. Pelvis Appendix cannot be identified. No pericecal inflammation. Urinary bladder, distal ureters and uterus appear negative. No free fluid or inflammatory change. No appreciable bowel abnormalities. Advanced degenerative change in the right hip. No acute skeletal lesions. IMPRESSION: 1. No acute abnormality. Signer Name: Bharath Wallis MD Signed: 02/25/2020 11:52 PM Workstation Name: [id number]
== END 2020-02-26 04:12 | disposition home or self-care (01) ==
LOC: ED 18:35
DX: K21.9 Gastro-esophageal reflux disease without esophagitis (principal); R11.2 Nausea with vomiting, unspecified; I10 Essential (primary) hypertension; R56.9 Unspecified convulsions; Z86.73 Personal history of transient ischemic attack (TIA), and cerebral infarction without residual deficits; Z79.899 Other long term (current) drug therapy
CPT/HCPCS: 36415; 74176; 80048; 80076; 83690; 85025; 96374; 99285; J2405; J7040; 96361

== ENCOUNTER 2020-10-18 20:16 | Inpatient (IN) | payer BC, MEDICARE, OTHER ==
--- NOTE | 2020-10-18 21:02 | Emergency Department Report ---
ED Seizure HPI - General Chief Complaint: Seizure Stated Complaint: SEIZURE Time Seen by Provider: 10/18/20 20:51 Source: patient, EMS Mode of arrival: Stretcher Limitations: No Limitations - History of Present Illness Initial Comments: 65-year-old female, history of CVA with right-sided deficits, seizure disorder, presents to ED from [facility] following seizure activity. Patient states she has been compliant with her seizure medication, Keppra. Per EMS, patient normally takes Xanax twice a day, but has not had it in 2 days due to issues with insurance. EMS was called. Patient was given 5 mg IM Versed by EMS. Patient is currently awake and alert. She denies any recent illness. MD Complaint: seizure -: This evening Witnessed:: Yes Trauma: No Seizure History: known seizure disorder Place: home Possible Precipitating Event: other (Benzodiazepine withdrawal) Associated Symptoms: denies other symptoms Treatments Prior to Arrival: benzodiazepines - Related Data Home Medications Medication Instructions Recorded Confirmed Last Taken ALPRAZolam [Xanax TAB] 0.5 mg PO BID 12/20/19 12/20/19 Unknown AtorvaSTATin [Lipitor] 40 mg PO QHS 12/20/19 12/20/19 Unknown Lansoprazole [Prevacid] 15 mg PO QDAY 12/20/19 12/20/19 Unknown amLODIPine 5 mg PO DAILY 12/20/19 12/20/19 Unknown Previous Rx's Medication Instructions Recorded Last Taken Type ALPRAZolam [Xanax TAB] 0.5 mg PO BID tablet 12/21/19 Unknown Rx Aspirin 325 mg PO QDAY tablet 12/21/19 Unknown Rx Metoprolol Xl [Metoprolol 25 mg PO DAILY tablet 12/21/19 Unknown Rx SUCCINATE ER TAB] Pantoprazole [Protonix TAB] 40 mg PO DAILY tablet 12/21/19 Unknown Rx Verapamil ER [Calan SR] 180 mg PO QHS tablet 12/21/19 Unknown Rx levETIRAcetam [Keppra] 1,500 mg PO BID 60 Days 12/21/19 Unknown Rx Ondansetron [Zofran Odt] 1 tab PO Q8HR PRN #5 tab.rapdis 02/26/20 Unknown Rx Allergies Allergy/AdvReac Type Severity Reaction Status Date / Time No Known Allergies Allergy Verified 10/18/20 22:12 ED Review of Systems ROS: Stated complaint: SEIZURE Other details as noted in HPI Comment: All other systems reviewed and negative Constitutional: denies: chills, fever Respiratory: denies: cough, shortness of breath Gastrointestinal: denies: abdominal pain, vomiting, diarrhea ED Past Medical Hx - Past Medical History Hx Hypertension: Yes Hx CVA: Yes (R sided deficits) Hx Congestive Heart Failure: Yes Hx Seizures: Yes Hx Psychiatric Treatment: Yes (anxiety; depression) Additional medical history: high cholesterol - Social History Smoking Status: Never Smoker - Medications Home Medications: Home Medications Medication Instructions Recorded Confirmed Last Taken Type ALPRAZolam [Xanax TAB] 0.5 mg PO BID 12/20/19 12/20/19 Unknown History AtorvaSTATin [Lipitor] 40 mg PO QHS 12/20/19 12/20/19 Unknown History Lansoprazole [Prevacid] 15 mg PO QDAY 12/20/19 12/20/19 Unknown History amLODIPine 5 mg PO DAILY 12/20/19 12/20/19 Unknown History ALPRAZolam [Xanax TAB] 0.5 mg PO BID tablet 12/21/19 Unknown Rx Aspirin 325 mg PO QDAY tablet 12/21/19 Unknown Rx Metoprolol Xl [Metoprolol 25 mg PO DAILY tablet 12/21/19 Unknown Rx SUCCINATE ER TAB] Pantoprazole [Protonix TAB] 40 mg PO DAILY tablet 12/21/19 Unknown Rx Verapamil ER [Calan SR] 180 mg PO QHS tablet 12/21/19 Unknown Rx levETIRAcetam [Keppra] 1,500 mg PO BID 60 Days 12/21/19 Unknown Rx Ondansetron [Zofran Odt] 1 tab PO Q8HR PRN #5 tab.rapdis 02/26/20 Unknown Rx ED Physical Exam - General Limitations: No Limitations General appearance: alert, in no apparent distress - Head Head exam: Present: atraumatic, normocephalic - Eye Eye exam: Present: normal appearance - ENT ENT exam: Present: mucous membranes moist - Neck Neck exam: Present: normal inspection - Respiratory Respiratory exam: Present: normal lung sounds bilaterally. Absent: respiratory distress - Cardiovascular Cardiovascular Exam: Present: regular rate, normal rhythm - GI/Abdominal GI/Abdominal exam: Present: soft. Absent: distended, tenderness - Extremities Exam Extremities exam: Present: normal inspection - Neurological Exam Neurological exam: Present: alert, oriented X3, motor sensory deficit (Baseline right-sided weakness present). Absent: CN II-XII intact (Dysarthria, mild aphasia present) - Psychiatric Psychiatric exam: Present: normal affect, normal mood - Skin Skin exam: Present: warm, dry, intact, normal color ED Course Vital Signs 10/18/20 10/18/20 10/18/20 20:31 20:33 20:45 Temperature 100.6 F H Pulse Rate 84 89 82 Respiratory 18 Rate Blood Pressure 142/72 137/76 129/81 O2 Sat by Pulse 97 95 96 Oximetry 10/18/20 10/18/20 10/18/20 21:01 21:15 21:18 Temperature 98.8 F Pulse Rate 73 Respiratory 15 21 Rate Blood Pressure 129/81 126/58 O2 Sat by Pulse 96 97 Oximetry 10/18/20 10/18/20 10/18/20 21:31 21:45 22:01 Temperature Pulse Rate 72 Respiratory 22 19 24 Rate Blood Pressure 142/71 127/66 131/69 O2 Sat by Pulse 95 97 98 Oximetry 10/18/20 10/18/20 10/18/20 22:15 22:31 22:45 Temperature Pulse Rate Respiratory 20 20 16 Rate Blood Pressure 127/66 127/79 135/96 O2 Sat by Pulse 97 96 95 Oximetry 10/18/20 10/18/20 10/18/20 23:01 23:15 23:31 Temperature Pulse Rate 59 L 61 74 Respiratory 13 23 Rate Blood Pressure 126/49 113/80 145/67 O2 Sat by Pulse 97 97 96 Oximetry 10/19/20 01:17 Temperature Pulse Rate Respiratory 18 Rate Blood Pressure O2 Sat by Pulse Oximetry ED Medical Decision Making - Lab Data Result diagrams: 10/18/20 21:07 10/18/20 21:07 - Medical Decision Making 65-year-old female presents to ED following seizure. Patient has history of seizures and has been compliant with Keppra. Patient has missed 2 days of her Xanax due to inability to get her prescriptions secondary to insurance issues. Patient was given Versed by EMS prior to ED arrival. No seizure activity here in the ED. Labs are unremarkable. Patient given IV Keppra load here in the ED. However, I do not feel that patient is able to return to her assisted living facility. Seizure likely secondary to benzodiazepine withdrawal, and patient unable to receive benzos at [facility]. Therefore, patient will be admitted by hospitalist, Dr. Modi, for further management. - Differential Diagnosis Benzodiazepine withdrawal, electrolyte abnormality, medication noncomplianc Critical care attestation.: If time is entered above; I have spent that time in minutes in the direct care of this critically ill patient, excluding procedure time. ED Disposition Clinical Impression: Benzodiazepine withdrawal, Seizure concurrent with and [facility] Dis[facility] [id number] OP ADMIT IP TO THIS HOSP Is pt being admited?: Yes Condition: Stable Time of Disposition: 23:43
[2020-10-18] MEDS ORDERED: levETIRAcetam 1,000 MG in SODIUM CHLORIDE 0.9% 100 ML IV ONE (21:05)
[2020-10-18 21:21] LABS: Bilirubin,Urine NEG (Negative); Blood,Urine NEG (Negative); Color,Urine Yellow (Yellow); Mucus,Urine FEW /HPF; Protein,Urine <15 mg/dL mg/dL (Negative); Urobilinogen,Urine < 2.0 mg/dL (<2.0)
[2020-10-18] MEDS: levETIRAcetam 1000 MG/NS 0.75% 1,000 MG/100 ML BAG IV ONE ×3 (21:28→22:16)
[2020-10-18 21:34] LABS: Hematocrit 39.2 % (30.3-42.9); Hemoglobin 13.5 gm/dl (10.1-14.3); Mean Corpuscular HGB Conc 35 % (30-34); Mean Corpuscular Volume 83 fl (79-97); Platelet Count 320 K/mm3 (140-440); Red Blood Count 4.74 M/mm3 (3.65-5.03); Red Cell Distribution Width 14.5 % (13.2-15.2)
[2020-10-18 21:38] LABS: Basophils % (Auto) 0.5 % (0.0-1.8); Eosinophils % (Auto) 0.3 % (0.0-4.3); Lymphocytes % (Auto) 36.5 % (13.4-35.0); Monocytes % (Auto) 9.7 % (0.0-7.3)
[2020-10-18 21:39] LABS: Lymphocytes # (Auto) 2.7 K/mm3 (1.2-5.4); Monocytes # (Auto) 0.7 K/mm3 (0.0-0.8)
[2020-10-18 21:45] LABS: BUN/Creatinine Ratio 13; Blood Urea Nitrogen 9 mg/dL (7-17); Calcium 9.3 mg/dL (8.4-10.2); Hemolysis Index 5
[2020-10-19] MEDS ORDERED: LORazepam 2 MG/ML VIAL IV SCH (00:45)
--- NOTE | 2020-10-19 00:48 | History and Physical Report ---
History of Present Illness Date of examination: 10/18/20 Date of admission: 10/18/2020 Chief complaint: Seizure, benzodiazepine withdrawal History of present illness: 65-year-old -[place] female who is a current resident of [facility] with history of CVA (mild right-sided residual deficits), HTN, seizure disorder, hypertension, anxiety and depression who presents [facility] ED via EMS s/p seizure activity. Both EMS and patient reports chronic use of Xanax 0.5 mg twice daily, however patient has not had her usual dose of Xanax in the past 2 days due to insurance issues. Patient had witnessed seizure (unsure of time before termination), EMS was called. Upon arrival to the facility patient was given 5 mg IM Versed by EMS. Endorses compliance with Keppra. At the time of my examination patient is sitting up in stretcher, alert and oriented x4, able to communicate wants/needs and answer questions. She has no further complaints at this time. Denies fever, chills, nausea, vomiting, abdominal pain, constipation, diarrhea, dysuria, hematuria, recent fall recent head injury/trauma, or recent sick contacts. Past History Past Medical History: hypertension, hyperlipidemia, seizures, stroke (With mild right-sided residual deficits), other (Anxiety, depression, questionable history of GERD) Past Surgical History: No surgical history Social history: full code, other (Resident of [facility]). denies: smoking, alcohol abuse, prescription drug abuse, IV drug use Family history: hypertension Medications and Allergies Allergies Allergy/AdvReac Type Severity Reaction Status Date / Time No Known Allergies Allergy Verified 10/18/20 22:12 Home Medications Medication Instructions Recorded Confirmed Last Taken Type ALPRAZolam [Xanax TAB] 0.5 mg PO BID 12/20/19 12/20/19 Unknown History AtorvaSTATin [Lipitor] 40 mg PO QHS 12/20/19 12/20/19 Unknown History Lansoprazole [Prevacid] 15 mg PO QDAY 12/20/19 12/20/19 Unknown History amLODIPine 5 mg PO DAILY 12/20/19 12/20/19 Unknown History ALPRAZolam [Xanax TAB] 0.5 mg PO BID tablet 12/21/19 Unknown Rx Aspirin 325 mg PO QDAY tablet 12/21/19 Unknown Rx Metoprolol Xl [Metoprolol 25 mg PO DAILY tablet 12/21/19 Unknown Rx SUCCINATE ER TAB] Pantoprazole [Protonix TAB] 40 mg PO DAILY tablet 12/21/19 Unknown Rx Verapamil ER [Calan SR] 180 mg PO QHS tablet 12/21/19 Unknown Rx levETIRAcetam [Keppra] 1,500 mg PO BID 60 Days 12/21/19 Unknown Rx Ondansetron [Zofran Odt] 1 tab PO Q8HR PRN #5 tab.rapdis 02/26/20 Unknown Rx Active Meds: Active Medications Acetaminophen (Acetaminophen 325 Mg Tab) 650 mg PO Q4H PRN PRN Reason: Pain MILD(1-3)/Fever >100.5/MENDEZ Alprazolam (Alprazolam 0.5 Mg Tab) 0.5 mg PO BID MANA Amlodipine Besylate (Amlodipine 5 Mg Tab) 5 mg PO DAILY MANA Aspirin (Aspirin 325 Mg Tab) 325 mg PO QDAY MANA Atorvastatin Calcium (Atorvastatin 40 Mg Tab) 40 mg PO QHS MANA Heparin Sodium (Porcine) (Heparin 5,000 Unit/1 Ml Vial) 5,000 unit SUB-Q Q12HR MANA Levetiracetam 1,000 mg/ (Dextrose) 110 mls @ 400 mls/hr IV Q12HR MANA Lorazepam (Lorazepam 2 Mg/Ml Vial) 2 mg IV DIRECT MANA Stop: 10/20/20 00:44 Metoprolol Succinate (Metoprolol Succinate Xl 25 Mg Tab) 25 mg PO DAILY@0800 [facility] Ondansetron HCl (Ondansetron 4 Mg/2 Ml Inj) 4 mg IV Q6H PRN PRN Reason: Nausea And Vomiting Oxycodone/Acetaminophen (Oxycodone /Acetaminophen 5-325mg Tab) 1 tab PO Q6H PRN PRN Reason: Pain, Moderate (4-6) Pantoprazole Sodium (Pantoprazole 40 Mg Tab) 40 mg PO DAILY MANA Sodium Chloride (Sodium Chloride 0.9% 10 Ml Flush Syringe) 10 ml IV BID MANA Sodium Chloride (Sodium Chloride 0.9% 10 Ml Flush Syringe) 10 ml IV PRN PRN PRN Reason: LINE FLUSH Review of Systems All systems: negative (Except as noted in HPI) Exam - Physical Exam Narrative exam: Physical exam General appearance: Present: No acute distress, alert and oriented 3, well- developed, adult female - EENT Eyes: Present: PERRL, EOM intact ENT: hearing intact, missing teeth - Neck Neck: Present: supple, normal ROM - Respiratory Respiratory effort: Non-labored Respiratory: Clear throughout - Cardiovascular Heart rate:81 (bpm) Rhythm: Sinus Heart Sounds: Present: S1 & S2. Absent: rub, click - Extremities Extremities: no ischemia, pulses intact, - Peripheral Assessment Peripheral Pulses: within normal limits - Abdominal General gastrointestinal: Obese, soft, non-tender, normal bowel sounds - Integumentary Integumentary: Present: warm, dry - Musculoskeletal Musculoskeletal: Able to move all extremities, mild right-sided residual deficits, right strength 4/5, left 5/5 -Neurological Neurological: CN II-XII intact - Psychiatric Psychiatric: cooperative - Constitutional Vitals: Temp Pulse Resp BP Pulse Ox 98.8 F 74 23 145/67 96 10/18/20 21:18 10/18/20 23:31 10/18/20 23:31 10/18/20 23:31 10/18/20 23:31 Results - Labs CBC & Chem 7: 10/18/20 21:07 10/18/20 21:07 Labs: Laboratory Last Values WBC 7.4 K/mm3 (4.5-11.0) 10/18/20 21:07 RBC 4.74 M/mm3 (3.65-5.03) 10/18/20 21:07 Hgb 13.5 gm/dl (10.1-14.3) 10/18/20 21:07 Hct 39.2 % (30.3-42.9) 10/18/20 21:07 MCV 83 fl (79-97) 10/18/20 21:07 MCH 29 pg (28-32) 10/18/20 21:07 MCHC 35 % (30-34) H 10/18/20 21:07 RDW 14.5 % (13.2-15.2) 10/18/20 21:07 Plt Count 320 K/mm3 (140-440) 10/18/20 21:07 Lymph % (Auto) 36.5 % (13.4-35.0) H 10/18/20 21:07 Russell % (Auto) 9.7 % (0.0-7.3) H 10/18/20 21:07 Eos % (Auto) 0.3 % (0.0-4.3) 10/18/20 21:07 Baso % (Auto) 0.5 % (0.0-1.8) 10/18/20 21:07 Lymph # (Auto) 2.7 K/mm3 (1.2-5.4) 10/18/20 21:07 Russell # (Auto) 0.7 K/mm3 (0.0-0.8) 10/18/20 21:07 Eos # (Auto) 0.0 K/mm3 (0.0-0.4) 10/18/20 21:07 Baso # (Auto) 0.0 K/mm3 (0.0-0.1) 10/18/20 21:07 Add Manual Diff Complete 10/18/20 21:07 Seg Neutrophils % 53.0 % (40.0-70.0) 10/18/20 21:07 Nucleated RBC % Not Reportable 10/18/20 21:07 Seg Neutrophils # 4.0 K/mm3 (1.8-7.7) 10/18/20 21:07 WBC Morphology Not Reportable 10/18/20 21:07 Hypersegmented Neuts Not Reportable 10/18/20 21:07 Hyposegmented Neuts Not Reportable 10/18/20 21:07 Hypogranular Neuts Not Reportable 10/18/20 21:07 Smudge Cells Not Reportable 10/18/20 21:07 Toxic Granulation Not Reportable 10/18/20 21:07 Toxic Vacuolation Not Reportable 10/18/20 21:07 Dohle Bodies Not Reportable 10/18/20 21:07 Pelger-Huet Anomaly Not Reportable 10/18/20 21:07 Anastacia Rods Not Reportable 10/18/20 21:07 Platelet Estimate Not Reportable 10/18/20 21:07 Clumped Platelets Not Reportable 10/18/20 21:07 Plt Clumps, EDTA Not Reportable 10/18/20 21:07 Large Platelets Not Reportable 10/18/20 21:07 Giant Platelets Not Reportable 10/18/20 21:07 Platelet Satelliting Not Reportable 10/18/20 21:07 Plt Morphology Comment Not Reportable 10/18/20 21:07 RBC Morphology Not Reportable 10/18/20 21:07 Dimorphic RBCs Not Reportable 10/18/20 21:07 Polychromasia Not Reportable 10/18/20 21:07 Hypochromasia Not Reportable 10/18/20 21:07 Poikilocytosis Not Reportable 10/18/20 21:07 Anisocytosis Not Reportable 10/18/20 21:07 Microcytosis Not Reportable 10/18/20 21:07 Macrocytosis Not Reportable 10/18/20 21:07 Spherocytes Not Reportable 10/18/20 21:07 Pappenheimer Bodies Not Reportable 10/18/20 21:07 Sickle Cells Not Reportable 10/18/20 21:07 Target Cells Not Reportable 10/18/20 21:07 Tear Drop Cells Not Reportable 10/18/20 21:07 Ovalocytes Not Reportable 10/18/20 21:07 Helmet Cells Not Reportable 10/18/20 21:07 [place] Bodies Not Reportable 10/18/20 21:07 [place] Rings Not Reportable 10/18/20 21:07 Angus Cells Not Reportable 10/18/20 21:07 Bite Cells Not Reportable 10/18/20 21:07 Crenated Cell Not Reportable 10/18/20 21:07 Elliptocytes Not Reportable 10/18/20 21:07 Acanthocytes (Spur) Not Reportable 10/18/20 21:07 Rouleaux Not Reportable 10/18/20 21:07 Hemoglobin C Crystals Not Reportable 10/18/20 21:07 Schistocytes Not Reportable 10/18/20 21:07 Malaria parasites Not Reportable 10/18/20 21:07 Bradley Bodies Not Reportable 10/18/20 21:07 Hem Pathologist Commnt Not Reportable 10/18/20 21:07 Sodium 142 mmol/L (137-145) 10/18/20 21:07 Potassium 3.6 mmol/L (3.6-5.0) 10/18/20 21:07 Chloride 104.8 mmol/L (98-107) 10/18/20 21:07 Carbon Dioxide 26 mmol/L (22-30) 10/18/20 21:07 Anion Gap 15 mmol/L 10/18/20 21:07 BUN 9 mg/dL (7-17) 10/18/20 21:07 Creatinine 0.7 mg/dL (0.6-1.2) 10/18/20 21:07 Estimated GFR > 60 ml/min 10/18/20 21:07 BUN/Creatinine Ratio 13 % 10/18/20 21:07 Glucose 97 mg/dL (65-100) 10/18/20 21:07 Calcium 9.3 mg/dL (8.4-10.2) 10/18/20 21:07 Urine Color Yellow (Yellow) 10/18/20 Unknown Urine Turbidity Clear (Clear) 10/18/20 Unknown Urine pH 6.0 (5.0-7.0) 10/18/20 Unknown Ur Specific [place] 1.014 (1.003-1.030) 10/18/20 Unknown Urine Protein <15 mg/dl mg/dL (Negative) 10/18/20 Unknown Urine Glucose (UA) Neg mg/dL (Negative) 10/18/20 Unknown Urine Ketones Neg mg/dL (Negative) 10/18/20 Unknown Urine Blood Neg (Negative) 10/18/20 Unknown Urine Nitrite Neg (Negative) 10/18/20 Unknown Urine Bilirubin Neg (Negative) 10/18/20 Unknown Urine Urobilinogen < 2.0 mg/dL (<2.0) 10/18/20 Unknown Ur Leukocyte Esterase Tr (Negative) 10/18/20 Unknown Urine WBC (Auto) 9.0 /HPF (0.0-6.0) H 10/18/20 Unknown Urine RBC (Auto) 2.0 /HPF (0.0-6.0) 10/18/20 Unknown U Epithel Cells (Auto) 4.0 /HPF (0-13.0) 10/18/20 Unknown Urine Mucus Few /HPF 10/18/20 Unknown Assessment and Plan Assessment and plan: Seizure -Concurrent with and most likely due to anxiolytic withdrawal -Initiate seizure precautions, fall precaution, aspiration precaution -EEG pending -PT/ OT eval pending -IV Ativan as needed -1 g IV Keppra twice daily -Neurology consulted Benzodiazepine withdrawal -Chronic use of Xanax 0.5 mg twice daily -Abrupt cessation of chronic BZD use x2 days due to insurance issues -Resume Xanax home dose -Case management consult placed HTN -Monitor BP -Resume home hypertensive meds History of anxiety & depression -Resume Xanax home dose -Day team may consider mental health eval/consult DVT and GI PPX -On heparin and Protonix Advance Directives: No VTE prophylaxis?: Chemical, Mechanical Plan of care discussed with patient/family: Yes
[2020-10-19] MEDS: ACETAMINOPHEN 325 MG TAB PO PRN (01:17)
[2020-10-19] MEDS: ONDANSETRON 4 MG/2 ML INJ IV PRN (01:20)
--- NOTE | 2020-10-19 07:21 | Consultation ---
History of Present Illness Consult date: 10/19/20 Reason for Consult: Possible seizure History of present illness: Possible Seizure 65-year-old -[place]ian female who is a current resident of [facility] with history of CVA no weakness, HTN, seizure disorderX2-3 years , hypertension, anxiety and depression who presents [facility] ED via EMS s/p seizure activity , According to pt. she started having jerking movement yesterday prolonged lasted few minutes at least 7-10 minutes then happened again twice she recall most of the event no urinary incontinence but she bit her tongue in right side according to her she is taking her seizure medication Both EMS and patient reports chronic use of Xanax 0.5 mg twice daily, however patient has not had her usual dose of Xanax in the past 2 days due to insurance issues Patient had witnessed seizure EMS was called. Upon arrival to the facility patient was given 5 mg IM Versed by EMS. At the time of my examination patient is sitting up in stretcher, alert and oriented x4, able to communicate wants/needs and answer questions. She has no further complaints at this time. Denies fever, chills, nausea, vomiting, abdominal pain, constipation, diarrhea, dysuria, hematuria, recent fall recent head injury/trauma, or recent sick contacts. she denied being anxious but seems to be some what confused this am . she denied psychic history but is on Xanax for years feel anxious some time Past History Past Medical History: hypertension, hyperlipidemia, seizures, stroke ,Anxiety, depression, questionable history of GERD Past Surgical History: No surgical history Social history: full code, other (Resident of [facility]). denies: smoking, alcohol abuse, prescription drug abuse, IV drug use Family history: hypertension Review of Systems All systems: negative (Except as noted in HPI) Past History Past Medical History: hypertension, hyperlipidemia, seizures, stroke (With mild right-sided residual deficits), other (Anxiety, depression, questionable history of GERD) Past Surgical History: No surgical history Social history: full code, other (Resident of [facility]). denies: smoking, alcohol abuse, prescription drug abuse, IV drug use Family history: hypertension Medications and Allergies Allergies Allergy/AdvReac Type Severity Reaction Status Date / Time No Known Allergies Allergy Verified 10/18/20 22:12 Home Medications Medication Instructions Recorded Confirmed Last Taken Type ALPRAZolam [Xanax TAB] 0.5 mg PO BID 12/20/19 12/20/19 Unknown History AtorvaSTATin [Lipitor] 40 mg PO QHS 12/20/19 10/19/20 Unknown History Lansoprazole [Prevacid] 15 mg PO QDAY 12/20/19 10/19/20 Unknown History amLODIPine 5 mg PO DAILY 12/20/19 10/19/20 Unknown History ALPRAZolam [Xanax TAB] 0.5 mg PO BID tablet 12/21/19 Unknown Rx Aspirin 325 mg PO QDAY tablet 12/21/19 10/19/20 Unknown Rx Metoprolol Xl [Metoprolol 25 mg PO DAILY tablet 12/21/19 10/19/20 Unknown Rx SUCCINATE ER TAB] Pantoprazole [Protonix TAB] 40 mg PO DAILY tablet 12/21/19 Unknown Rx Verapamil ER [Calan SR] 180 mg PO QHS tablet 12/21/19 10/19/20 Unknown Rx levETIRAcetam [Keppra] 1,500 mg PO BID 60 Days 12/21/19 Unknown Rx Ondansetron [Zofran Odt] 1 tab PO Q8HR PRN #5 tab.rapdis 02/26/20 Unknown Rx Active Meds: Active Medications Acetaminophen (Acetaminophen 325 Mg Tab) 650 mg PO Q4H PRN PRN Reason: Pain MILD(1-3)/Fever >100.5/MENDEZ Last Admin: 10/19/20 01:17 Dose: 650 mg Documented by: Alprazolam (Alprazolam 0.5 Mg Tab) 0.5 mg PO BID MANA Amlodipine Besylate (Amlodipine 5 Mg Tab) 5 mg PO DAILY MANA Aspirin (Aspirin 325 Mg Tab) 325 mg PO QDAY MANA Atorvastatin Calcium (Atorvastatin 40 Mg Tab) 40 mg PO QHS [facility] Heparin Sodium (Porcine) (Heparin 5,000 Unit/1 Ml Vial) 5,000 unit SUB-Q Q12HR MNAA Levetiracetam 1,000 mg/ (Dextrose) 110 mls @ 400 mls/hr IV Q12HR MANA Lorazepam (Lorazepam 2 Mg/Ml Vial) 2 mg IV DIRECT MANA Stop: 10/20/20 00:44 Metoprolol Succinate (Metoprolol Succinate Xl 25 Mg Tab) 25 mg PO DAILY@0800 MANA Ondansetron HCl (Ondansetron 4 Mg/2 Ml Inj) 4 mg IV Q6H PRN PRN Reason: Nausea And Vomiting Last Admin: 10/19/20 01:20 Dose: 4 mg Documented by: Oxycodone/Acetaminophen (Oxycodone /Acetaminophen 5-325mg Tab) 1 tab PO Q6H PRN PRN Reason: Pain, Moderate (4-6) Pantoprazole Sodium (Pantoprazole 40 Mg Tab) 40 mg PO DAILY MANA Sodium Chloride (Sodium Chloride 0.9% 10 Ml Flush Syringe) 10 ml IV BID MANA Sodium Chloride (Sodium Chloride 0.9% 10 Ml Flush Syringe) 10 ml IV PRN PRN PRN Reason: LINE FLUSH Physical Examination - Vital Signs Vital Signs: Vital Signs Pulse BP Pulse Ox 84 142/72 97 10/18/20 20:31 10/18/20 20:31 10/18/20 20:31 - Constitutional General appearance: comfortable, other (disoriented to place or date can hardly remember her birthdate, recall president name only with help,difficulty with calculation and cognitive function ) - EENT EENT: Present: PERRL, mucous membranes moist - Respiratory Respiratory: Present: chest non-tender, lungs clear, rhonchi - Cardiovascular Cardiovascular: Present: regular rate Extremities: Present: no peripheral edema bilatateraly, no clubbing, cyanosis - Gastrointestinal Gastrointestinal: Present: normoactive bowel sounds - Integumentary Integumentary: Present: normal - Neurologic Cranial nerve examination: PERRL, EOMI Speech examination: intact Sensorimotor examination: intact Detailed motor examination: other (possibly slight clumsiness right upper ) - Psychiatric Psychiatric: Present: mood/affect appropriate, cooperative Results - Laboratory Findings CBC and BMP: 10/18/20 21:07 10/18/20 21:07 Abnormal Lab Findings: Abnormal Labs 10/18/20 10/18/20 21:07 Unknown MCHC 35 H Lymph % (Auto) 36.5 H [place] % (Auto) 9.7 H Urine WBC (Auto) 9.0 H Assessment and Plan Assessment and Plan #Seizure Recurrent vs anxiety related attack ? -doubt to be related to anxiolytic withdrawal pt, show no sign of withdrawal -Initiate seizure precautions, fall precaution, aspiration precaution -EEG pending -PT/ OT eval pending -IV Ativan as needed -1 g IV or PO Keppra twice daily -Brain MRI with Qd #Underlying anxiety and or depression -Chronic use of Xanax 0.5 mg twice daily -Resume Xanax home dose -Start on Celexa 20 mg daily -consider psychiatry evaluation -Case management consult placed #HTN -Monitor BP -Resume home hypertensive meds # Hx of remote CVA with slight residual upper extremity clumsiness -Check MRI -ASA 81 mg daily -US carotid -Lipid profil -Resume Lipitor 40 mg daily # Confusion noted on exam today -R/o underlying infection -Post ictal ? -underlying dementia -send for TSH,B12,Folate DVT and GI PPX -On heparin and Protonix will follow
--- NOTE | 2020-10-19 08:46 | Progress Note ---
Assessment and Plan Assessment and plan: Seizure -Concurrent with and most likely due to anxiolytic withdrawal -Initiate seizure precautions, fall precaution, aspiration precaution -EEG pending -PT/ OT eval pending -IV Ativan as needed -1 g IV Keppra twice daily -Neurology consulted Benzodiazepine withdrawal -Chronic use of Xanax 0.5 mg twice daily -Abrupt cessation of chronic BZD use x2 days due to insurance issues -Resume Xanax home dose -Case management consult placed HTN -Monitor BP -Resume home hypertensive meds History of anxiety & depression -Resume Xanax home dose -Day team may consider mental health eval/consult DVT and GI PPX -On heparin and Protonix History Interval history: No new issues overnight. No seizure activity. Hospitalist Physical - Constitutional Vitals: Temp Pulse Resp BP Pulse Ox 98.3 F 82 18 117/59 94 10/19/20 04:38 10/19/20 04:38 10/19/20 04:38 10/19/20 04:38 10/19/20 04:38 General appearance: Present: no acute distress, well-nourished - EENT Eyes: Present: PERRL, EOM intact ENT: hearing intact, clear oral mucosa, dentition normal - Neck Neck: Present: supple, normal ROM - Respiratory Respiratory effort: normal Respiratory: bilateral: CTA - Cardiovascular Rhythm: regular Heart Sounds: Present: S1 & S2. Absent: gallop, rub - Extremities Extremities: no ischemia, No edema, Full ROM - Abdominal General gastrointestinal: soft, non-tender, non-distended, normal bowel sounds - Integumentary Integumentary: Present: clear, warm, dry - Neurologic Neurologic: CNII-XII intact, moves all extremities Results - Labs CBC & Chem 7: 10/18/20 21:07 10/18/20 21:07 Labs: Laboratory Last Values WBC 7.4 K/mm3 (4.5-11.0) 10/18/20 21:07 RBC 4.74 M/mm3 (3.65-5.03) 10/18/20 21:07 Hgb 13.5 gm/dl (10.1-14.3) 10/18/20 21:07 Hct 39.2 % (30.3-42.9) 10/18/20 21:07 MCV 83 fl (79-97) 10/18/20 21:07 MCH 29 pg (28-32) 10/18/20 21:07 MCHC 35 % (30-34) H 10/18/20 21:07 RDW 14.5 % (13.2-15.2) 10/18/20 21:07 Plt Count 320 K/mm3 (140-440) 10/18/20 21:07 Lymph % (Auto) 36.5 % (13.4-35.0) H 10/18/20 21:07 [place] % (Auto) 9.7 % (0.0-7.3) H 10/18/20 21:07 Eos % (Auto) 0.3 % (0.0-4.3) 10/18/20 21:07 Baso % (Auto) 0.5 % (0.0-1.8) 10/18/20 21:07 Lymph # (Auto) 2.7 K/mm3 (1.2-5.4) 10/18/20 21:07 [place] # (Auto) 0.7 K/mm3 (0.0-0.8) 10/18/20 21:07 Eos # (Auto) 0.0 K/mm3 (0.0-0.4) 10/18/20 21:07 Baso # (Auto) 0.0 K/mm3 (0.0-0.1) 10/18/20 21:07 Add Manual Diff Complete 10/18/20 21:07 Seg Neutrophils % 53.0 % (40.0-70.0) 10/18/20 21:07 Nucleated RBC % Not Reportable 10/18/20 21:07 Seg Neutrophils # 4.0 K/mm3 (1.8-7.7) 10/18/20 21:07 WBC Morphology Not Reportable 10/18/20 21:07 Hypersegmented Neuts Not Reportable 10/18/20 21:07 Hyposegmented Neuts Not Reportable 10/18/20 21:07 Hypogranular Neuts Not Reportable 10/18/20 21:07 Smudge Cells Not Reportable 10/18/20 21:07 Toxic Granulation Not Reportable 10/18/20 21:07 Toxic Vacuolation Not Reportable 10/18/20 21:07 Dohle Bodies Not Reportable 10/18/20 21:07 Pelger-Huet Anomaly Not Reportable 10/18/20 21:07 Anastacia Rods Not Reportable 10/18/20 21:07 Platelet Estimate Not Reportable 10/18/20 21:07 Clumped Platelets Not Reportable 10/18/20 21:07 Plt Clumps, EDTA Not Reportable 10/18/20 21:07 Large Platelets Not Reportable 10/18/20 21:07 Giant Platelets Not Reportable 10/18/20 21:07 Platelet Satelliting Not Reportable 10/18/20 21:07 Plt Morphology Comment Not Reportable 10/18/20 21:07 RBC Morphology Not Reportable 10/18/20 21:07 Dimorphic RBCs Not Reportable 10/18/20 21:07 Polychromasia Not Reportable 10/18/20 21:07 Hypochromasia Not Reportable 10/18/20 21:07 Poikilocytosis Not Reportable 10/18/20 21:07 Anisocytosis Not Reportable 10/18/20 21:07 Microcytosis Not Reportable 10/18/20 21:07 Macrocytosis Not Reportable 10/18/20 21:07 Spherocytes Not Reportable 10/18/20 21:07 Pappenheimer Bodies Not Reportable 10/18/20 21:07 Sickle Cells Not Reportable 10/18/20 21:07 Target Cells Not Reportable 10/18/20 21:07 Tear Drop Cells Not Reportable 10/18/20 21:07 Ovalocytes Not Reportable 10/18/20 21:07 Helmet Cells Not Reportable 10/18/20 21:07 [place] Bodies Not Reportable 10/18/20 21:07 [place] Rings Not Reportable 10/18/20 21:07 [place] Cells Not Reportable 10/18/20 21:07 Bite Cells Not Reportable 10/18/20 21:07 Crenated Cell Not Reportable 10/18/20 21:07 Elliptocytes Not Reportable 10/18/20 21:07 Acanthocytes (Spur) Not Reportable 10/18/20 21:07 Rouleaux Not Reportable 10/18/20 21:07 Hemoglobin C Crystals Not Reportable 10/18/20 21:07 Schistocytes Not Reportable 10/18/20 21:07 Malaria parasites Not Reportable 10/18/20 21:07 Bradley Bodies Not Reportable 10/18/20 21:07 Hem Pathologist Commnt Not Reportable 10/18/20 21:07 Sodium 142 mmol/L (137-145) 10/18/20 21:07 Potassium 3.6 mmol/L (3.6-5.0) 10/18/20 21:07 Chloride 104.8 mmol/L (98-107) 10/18/20 21:07 Carbon Dioxide 26 mmol/L (22-30) 10/18/20 21:07 Anion Gap 15 mmol/L 10/18/20 21:07 BUN 9 mg/dL (7-17) 10/18/20 21:07 Creatinine 0.7 mg/dL (0.6-1.2) 10/18/20 21:07 Estimated GFR > 60 ml/min 10/18/20 21:07 BUN/Creatinine Ratio 13 % 10/18/20 21:07 Glucose 97 mg/dL (65-100) 10/18/20 21:07 Hemoglobin A1c 5.3 % (4-6) 10/18/20 21:07 Calcium 9.3 mg/dL (8.4-10.2) 10/18/20 21:07 Urine Color Yellow (Yellow) 10/18/20 Unknown Urine Turbidity Clear (Clear) 10/18/20 Unknown Urine pH 6.0 (5.0-7.0) 10/18/20 Unknown Ur Specific [place] 1.014 (1.003-1.030) 10/18/20 Unknown Urine Protein <15 mg/dl mg/dL (Negative) 10/18/20 Unknown Urine Glucose (UA) Neg mg/dL (Negative) 10/18/20 Unknown Urine Ketones Neg mg/dL (Negative) 10/18/20 Unknown Urine Blood Neg (Negative) 10/18/20 Unknown Urine Nitrite Neg (Negative) 10/18/20 Unknown Urine Bilirubin Neg (Negative) 10/18/20 Unknown Urine Urobilinogen < 2.0 mg/dL (<2.0) 10/18/20 Unknown Ur Leukocyte Esterase Tr (Negative) 10/18/20 Unknown Urine WBC (Auto) 9.0 /HPF (0.0-6.0) H 10/18/20 Unknown Urine RBC (Auto) 2.0 /HPF (0.0-6.0) 10/18/20 Unknown U Epithel Cells (Auto) 4.0 /HPF (0-13.0) 10/18/20 Unknown Urine Mucus Few /HPF 10/18/20 Unknown Kaplan/IV: Voiding Method Toilet Active Medications - Current Medications Current Medications: Generic Name Dose Route Start Last Admin Trade Name Freq PRN Reason Stop Dose Admin Acetaminophen 650 mg 10/18/20 23:50 10/19/20 01:17 Acetaminophen 325 Mg Tab PO 650 mg Q4H PRN Administration Pain MILD(1-3)/Fever >100.5/MENDEZ Alprazolam 0.5 mg 10/19/20 10:00 Alprazolam 0.5 Mg Tab PO BID [facility] Amlodipine Besylate 5 mg 10/19/20 10:00 Amlodipine 5 Mg Tab PO DAILY [facility] Aspirin 325 mg 10/19/20 10:00 Aspirin 325 Mg Tab PO QDAY [facility] Atorvastatin Calcium 40 mg 10/19/20 22:00 Atorvastatin 40 Mg Tab PO QHS [facility] Heparin Sodium (Porcine) 5,000 unit 10/19/20 10:00 Heparin 5,000 Unit/1 Ml Vial SUB-Q Q12HR [facility] Levetiracetam 1,000 mg/ 110 mls @ 400 mls/hr 10/19/20 10:00 Dextrose IV Q12HR [facility] Lorazepam 2 mg 10/19/20 00:45 Lorazepam 2 Mg/Ml Vial IV 10/20/20 00:44 DIRECT [facility] Metoprolol Succinate 25 mg 10/19/20 08:00 Metoprolol Succinate Xl 25 Mg Tab PO DAILY@0800 [facility] Ondansetron HCl 4 mg 10/18/20 23:50 10/19/20 01:20 Ondansetron 4 Mg/2 Ml Inj IV 4 mg Q6H PRN Administration Nausea And Vomiting Oxycodone/Acetaminophen 1 tab 10/18/20 23:50 Oxycodone /Acetaminophen 5-325mg Tab PO Q6H PRN Pain, Moderate (4-6) Pantoprazole Sodium 40 mg 10/19/20 10:00 Pantoprazole 40 Mg Tab PO DAILY MANA Sodium Chloride 10 ml 10/19/20 10:00 Sodium Chloride 0.9% 10 Ml Flush Syringe IV BID MANA Sodium Chloride 10 ml 10/18/20 23:50 Sodium Chloride 0.9% 10 Ml Flush Syringe IV PRN PRN LINE FLUSH
[2020-10-19] MEDS: ALPRAZolam 0.5 MG TAB PO SCH ×2 (09:32→21:44)
[2020-10-19] MEDS: METOPROLOL SUCCINATE XL 25 MG TAB PO SCH (09:32)
[2020-10-19] MEDS: ASPIRIN 325 MG TAB PO SCH (09:33)
[2020-10-19] MEDS: PANTOPRAZOLE 40 MG TAB PO SCH (09:33)
[2020-10-19] MEDS: HEPARIN 5,000 UNIT/1 ML VIAL SUB-Q SCH ×2 (09:33→21:45)
[2020-10-19] MEDS: amLODIPine 5 MG TAB PO SCH (09:33)
[2020-10-19] MEDS: levETIRAcetam 1,000 MG in DEXTROSE 5% IN WATER 100 ML IV SCH ×2 (09:33→21:44)
[2020-10-19 14:11] LABS: Chol/HDL Ratio 2.39 %
--- NOTE | 2020-10-19 17:21 | Vascular Lab Report ---
"DUPLEX DOPPLER ULTRASOUND CAROTID, BILATERAL INDICATION / CLINICAL INFORMATION: CVA. COMPARISON: None available. FINDINGS: RIGHT CAROTID: - PLAQUE ESTIMATE (%): < 50% - CCA velocity: 73 cm/sec. - ICA peak systolic velocity: 74 cm/sec. - ICA/CCA PSV Ratio: 1.01 Right Vertebral Artery: Antegrade flow. LEFT CAROTID: - PLAQUE ESTIMATE: < 50% - CCA velocity: 60 cm/sec. - ICA peak systolic velocity: 129 cm/sec. - ICA/CCA PSV Ratio: 2.15 Left Vertebral Artery: Antegrade flow. The left external carotid artery appears occluded or near occluded proximally. IMPRESSION: 1. Right Internal Carotid Artery: Less than 50% diameter stenosis. 2. Left Internal Carotid Artery: 50-69% stenosis of the left internal carotid artery. 3. Complete or near occlusion of the proximal left external carotid artery. Velocity criteria are extrapolated from diameter data as defined by the Society of Radiologists in [facility] Consensus Conference, Radiology 2003; 229;340-346. Degree of || ICA PSV || Plaque || ICA/CCA Stenosis (%) || (cm/sec) || estimate (%) || PSV Ratio Normal ............. || ...<125........... || ...None......... || ...<2.0 <50................... || ...<125........... || ......<50......... || ...<2.0 50-69................ || ..125-230...... || ......>50......... || 2.0-4.0 >70 but <100... || >230.............. || .......>50........ || ...>4.0 Near occlusion || High/low/none || ...visible....... || variable Total occlusion || ....None........... || ..no lumen... || ....N/A Signer Name: Kei Rai MD Signed: 10/19/2020 5:16 PM Workstation Name: [id number]"
[2020-10-19] MEDS: oxyCODONE /ACETAMINOPHEN 5-325MG TAB PO PRN (17:44)
[2020-10-20 05:35] LABS: Hematocrit 36.8 % (30.3-42.9); Hemoglobin 12.6 gm/dl (10.1-14.3); Mean Corpuscular HGB Conc 34 % (30-34); Mean Corpuscular Volume 85 fl (79-97); Platelet Count 276 K/mm3 (140-440); Red Blood Count 4.33 M/mm3 (3.65-5.03); Red Cell Distribution Width 14.5 % (13.2-15.2)
[2020-10-20 05:53] LABS: Blood Urea Nitrogen 16 mg/dL (7-17); Calcium 8.4 mg/dL (8.4-10.2); Hemolysis Index 46
[2020-10-20 05:57] LABS: BUN/Creatinine Ratio 23
[2020-10-20 06:23] LABS: Total Cells Counted 100
[2020-10-20 06:24] LABS: Anisocytosis 1+; Platelet Estimate Consistent w Auto
--- NOTE | 2020-10-20 08:19 | Progress Note ---
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 No seizure activity. Hospitalist Physical - Constitutional Vitals: Temp Pulse Resp BP Pulse Ox 98.2 F 72 16 109/59 96 10/20/20 03:29 10/20/20 03:29 10/20/20 03:29 10/20/20 03:29 10/20/20 03:29 General appearance: Present: no acute distress, well-nourished - EENT Eyes: Present: PERRL, EOM intact ENT: hearing intact, clear oral mucosa, dentition normal - Neck Neck: Present: supple, normal ROM - Respiratory Respiratory effort: normal Respiratory: bilateral: CTA - Cardiovascular Rhythm: regular Heart Sounds: Present: S1 & S2. Absent: gallop, rub - Extremities Extremities: no ischemia, No edema, Full ROM - Abdominal General gastrointestinal: soft, non-tender, non-distended, normal bowel sounds - Integumentary Integumentary: Present: clear, warm, dry - Neurologic Neurologic: CNII-XII intact, moves all extremities Results - Labs CBC & Chem 7: 10/20/20 04:49 10/20/20 04:49 Labs: Laboratory Last Values WBC 6.6 K/mm3 (4.5-11.0) 10/20/20 04:49 RBC 4.33 M/mm3 (3.65-5.03) 10/20/20 04:49 Hgb 12.6 gm/dl (10.1-14.3) 10/20/20 04:49 Hct 36.8 % (30.3-42.9) 10/20/20 04:49 MCV 85 fl (79-97) 10/20/20 04:49 MCH 29 pg (28-32) 10/20/20 04:49 MCHC 34 % (30-34) 10/20/20 04:49 RDW 14.5 % (13.2-15.2) 10/20/20 04:49 Plt Count 276 K/mm3 (140-440) 10/20/20 04:49 Lymph % (Auto) 36.5 % (13.4-35.0) H 10/18/20 21:07 [place] % (Auto) 9.7 % (0.0-7.3) H 10/18/20 21:07 Eos % (Auto) 0.3 % (0.0-4.3) 10/18/20 21:07 Baso % (Auto) 0.5 % (0.0-1.8) 10/18/20 21:07 Lymph # (Auto) 2.7 K/mm3 (1.2-5.4) 10/18/20 21:07 [place] # (Auto) 0.7 K/mm3 (0.0-0.8) 10/18/20 21:07 Eos # (Auto) 0.0 K/mm3 (0.0-0.4) 10/18/20 21:07 Baso # (Auto) 0.0 K/mm3 (0.0-0.1) 10/18/20 21:07 Add Manual Diff Complete 10/20/20 04:49 Total Counted 100 10/20/20 04:49 Seg Neutrophils % Baseball Player 10/20/20 04:49 Seg Neuts % (Manual) 39.0 % (40.0-70.0) L 10/20/20 04:49 Lymphocytes % (Manual) 55.0 % (13.4-35.0) H 10/20/20 04:49 Monocytes % (Manual) 5.0 % (0.0-7.3) 10/20/20 04:49 Eosinophils % (Manual) 1.0 % (0.0-4.3) 10/20/20 04:49 Nucleated RBC % Not Reportable 10/20/20 04:49 Seg Neutrophils # 4.0 K/mm3 (1.8-7.7) 10/18/20 21:07 Seg Neutrophils # Man 2.6 K/mm3 (1.8-7.7) 10/20/20 04:49 Band Neutrophils # 0.0 K/mm3 10/20/20 04:49 Lymphocytes # (Manual) 3.6 K/mm3 (1.2-5.4) 10/20/20 04:49 Abs React Lymphs (Man) 0.0 K/mm3 10/20/20 04:49 Monocytes # (Manual) 0.3 K/mm3 (0.0-0.8) 10/20/20 04:49 Eosinophils # (Manual) 0.1 K/mm3 (0.0-0.4) 10/20/20 04:49 Basophils # (Manual) 0.0 K/mm3 (0.0-0.1) 10/20/20 04:49 Metamyelocytes # 0.0 K/mm3 10/20/20 04:49 Myelocytes # 0.0 K/mm3 10/20/20 04:49 Promyelocytes # 0.0 K/mm3 10/20/20 04:49 Blast Cells # 0.0 K/mm3 10/20/20 04:49 WBC Morphology Not Reportable 10/20/20 04:49 Hypersegmented Neuts Not Reportable 10/20/20 04:49 Hyposegmented Neuts Not Reportable 10/20/20 04:49 Hypogranular Neuts Not Reportable 10/20/20 04:49 Smudge Cells Not Reportable 10/20/20 04:49 Toxic Granulation Not Reportable 10/20/20 04:49 Toxic Vacuolation Not Reportable 10/20/20 04:49 Dohle Bodies Not Reportable 10/20/20 04:49 Pelger-Huet Anomaly Not Reportable 10/20/20 04:49 Anastacia Rods Not Reportable 10/20/20 04:49 Platelet Estimate Consistent w auto 10/20/20 04:49 Clumped Platelets Not Reportable 10/20/20 04:49 Plt Clumps, EDTA Not Reportable 10/20/20 04:49 Large Platelets Not Reportable 10/20/20 04:49 Giant Platelets Not Reportable 10/20/20 04:49 Platelet Satelliting Not Reportable 10/20/20 04:49 Plt Morphology Comment Not Reportable 10/20/20 04:49 RBC Morphology Not Reportable 10/20/20 04:49 Dimorphic RBCs Not Reportable 10/20/20 04:49 Polychromasia Not Reportable 10/20/20 04:49 Hypochromasia Not Reportable 10/20/20 04:49 Poikilocytosis Not Reportable 10/20/20 04:49 Anisocytosis 1+ 10/20/20 04:49 Microcytosis Not Reportable 10/20/20 04:49 Macrocytosis Not Reportable 10/20/20 04:49 Spherocytes Not Reportable 10/20/20 04:49 Pappenheimer Bodies Not Reportable 10/20/20 04:49 Sickle Cells Not Reportable 10/20/20 04:49 Target Cells Not Reportable 10/20/20 04:49 Tear Drop Cells Not Reportable 10/20/20 04:49 Ovalocytes Not Reportable 10/20/20 04:49 Helmet Cells Not Reportable 10/20/20 04:49 Dam[place] Bodies Not Reportable 10/20/20 04:49 [place] Rings Not Reportable 10/20/20 04:49 [place] Cells Not Reportable 10/20/20 04:49 Bite Cells Not Reportable 10/20/20 04:49 Crenated Cell Not Reportable 10/20/20 04:49 Elliptocytes Not Reportable 10/20/20 04:49 Acanthocytes (Spur) Not Reportable 10/20/20 04:49 Rouleaux Not Reportable 10/20/20 04:49 Hemoglobin C Crystals Not Reportable 10/20/20 04:49 Schistocytes Not Reportable 10/20/20 04:49 Malaria parasites Not Reportable 10/20/20 04:49 [place] Bodies Not Reportable 10/20/20 04:49 Hem Pathologist Commnt No 10/20/20 04:49 Sodium 143 mmol/L (137-145) 10/20/20 04:49 Potassium 3.8 mmol/L (3.6-5.0) 10/20/20 04:49 Chloride 106.7 mmol/L (98-107) 10/20/20 04:49 Carbon Dioxide 28 mmol/L (22-30) 10/20/20 04:49 Anion Gap 12 mmol/L 10/20/20 04:49 BUN 16 mg/dL (7-17) 10/20/20 04:49 Creatinine 0.7 mg/dL (0.6-1.2) 10/20/20 04:49 Estimated GFR > 60 ml/min 10/20/20 04:49 BUN/Creatinine Ratio 23 % 10/20/20 04:49 Glucose 87 mg/dL (65-100) 10/20/20 04:49 Hemoglobin A1c 5.3 % (4-6) 10/18/20 21:07 Calcium 8.4 mg/dL (8.4-10.2) 10/20/20 04:49 Triglycerides 123 mg/dL (2-149) 10/19/20 13:23 Cholesterol 134 mg/dL (50-199) 10/19/20 13:23 LDL Cholesterol Direct 68 mg/dL (50-130) 10/19/20 13:23 HDL Cholesterol 56 mg/dL (40-59) 10/19/20 13:23 Cholesterol/HDL Ratio 2.39 % 10/19/20 13:23 TSH 0.943 mlU/mL (0.270-4.200) 10/19/20 13:23 Urine Color Yellow (Yellow) 10/18/20 Unknown Urine Turbidity Clear (Clear) 10/18/20 Unknown Urine pH 6.0 (5.0-7.0) 10/18/20 Unknown Ur Specific [place] 1.014 (1.003-1.030) 10/18/20 Unknown Urine Protein <15 mg/dl mg/dL (Negative) 10/18/20 Unknown Urine Glucose (UA) Neg mg/dL (Negative) 10/18/20 Unknown Urine Ketones Neg mg/dL (Negative) 10/18/20 Unknown Urine Blood Neg (Negative) 10/18/20 Unknown Urine Nitrite Neg (Negative) 10/18/20 Unknown Urine Bilirubin Neg (Negative) 10/18/20 Unknown Urine Urobilinogen < 2.0 mg/dL (<2.0) 10/18/20 Unknown Ur Leukocyte Esterase Tr (Negative) 10/18/20 Unknown Urine WBC (Auto) 9.0 /HPF (0.0-6.0) H 10/18/20 Unknown Urine RBC (Auto) 2.0 /HPF (0.0-6.0) 10/18/20 Unknown U Epithel Cells (Auto) 4.0 /HPF (0-13.0) 10/18/20 Unknown Urine Mucus Few /HPF 10/18/20 Unknown Microbiology: Microbiology 10/18/20 Unknown Urine,Clean Catch Urine Culture - Preliminary Kaplan/IV: Voiding Method Toilet Active Medications - Current Medications Current Medications: Generic Name Dose Route Start Last Admin Trade Name Freq PRN Reason Stop Dose Admin Acetaminophen 650 mg 10/18/20 23:50 10/19/20 01:17 Acetaminophen 325 Mg Tab PO 650 mg Q4H PRN Administration Pain MILD(1-3)/Fever >100.5/MENDEZ Alprazolam 0.5 mg 10/19/20 10:00 10/19/20 21:44 Alprazolam 0.5 Mg Tab PO 0.5 mg BID MANA Administration Amlodipine Besylate 5 mg 10/19/20 10:00 10/19/20 09:33 Amlodipine 5 Mg Tab PO 5 mg DAILY MANA Administration Aspirin 325 mg 10/19/20 10:00 10/19/20 09:33 Aspirin 325 Mg Tab PO 325 mg QDAY MANA Administration Atorvastatin Calcium 40 mg 10/19/20 22:00 10/19/20 21:44 Atorvastatin 40 Mg Tab PO 40 mg QHS MANA Administration Heparin Sodium (Porcine) 5,000 unit 10/19/20 10:00 10/19/20 21:45 Heparin 5,000 Unit/1 Ml Vial SUB-Q 5,000 unit Q12HR MANA Administration Levetiracetam 1,000 mg/ 110 mls @ 400 mls/hr 10/19/20 10:00 10/19/20 21:44 Dextrose IV 400 mls/hr Q12HR MANA Administration Metoprolol Succinate 25 mg 10/19/20 08:00 10/19/20 09:32 Metoprolol Succinate Xl 25 Mg Tab PO 25 mg DAILY@0800 MANA Administration Ondansetron HCl 4 mg 10/18/20 23:50 10/19/20 01:20 Ondansetron 4 Mg/2 Ml Inj IV 4 mg Q6H PRN Administration Nausea And Vomiting Oxycodone/Acetaminophen 1 tab 10/18/20 23:50 10/19/20 17:44 Oxycodone /Acetaminophen 5-325mg Tab PO 1 tab Q6H PRN Administration Pain, Moderate (4-6) Pantoprazole Sodium 40 mg 10/19/20 10:00 10/19/20 09:33 Pantoprazole 40 Mg Tab PO 40 mg DAILY MANA Administration Sodium Chloride 10 ml 10/19/20 10:00 10/19/20 21:44 Sodium Chloride 0.9% 10 Ml Flush Syringe IV 10 ml BID MANA Administration Sodium Chloride 10 ml 10/18/20 23:50 Sodium Chloride 0.9% 10 Ml Flush Syringe IV PRN PRN LINE FLUSH
[2020-10-20] MEDS: METOPROLOL SUCCINATE XL 25 MG TAB PO SCH (08:58)
[2020-10-20] MEDS: PANTOPRAZOLE 40 MG TAB PO SCH (08:59)
[2020-10-20] MEDS: levETIRAcetam 1,000 MG in DEXTROSE 5% IN WATER 100 ML IV SCH ×2 (08:59→22:07)
[2020-10-20] MEDS: HEPARIN 5,000 UNIT/1 ML VIAL SUB-Q SCH ×2 (08:59→22:07)
[2020-10-20] MEDS: amLODIPine 5 MG TAB PO SCH (08:59)
[2020-10-20] MEDS: ASPIRIN 325 MG TAB PO SCH (08:59)
[2020-10-20] MEDS: ALPRAZolam 0.5 MG TAB PO SCH ×2 (09:00→22:07)
--- NOTE | 2020-10-20 10:50 | Progress Note ---
Assessment and Plan Assessment and Plan #Seizure Recurrent vs anxiety related attack ? -doubt to be related to anxiolytic withdrawal pt, show no sign of withdrawal -Initiate seizure precautions, fall precaution, aspiration precaution -EEG pending -PT/ OT eval pending -IV Ativan as needed -1 g IV or PO Keppra twice daily -Brain MRI with Qd is pending # Confusion noted on exam today and yesterday ? 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 Seizure Interval history: pt. continues to be confused and or aphasic she is unable to answear questions appropriately she is repeat sentence again and again with the possibility of fluent aphasia can not be excluded !! Objective - Vital Sign Vital Signs - 12hr 10/19/20 10/19/20 10/20/20 23:00 23:25 00:00 Temperature 98.1 F Pulse Rate 66 51 L Respiratory 12 16 Rate Blood Pressure 101/43 O2 Sat by Pulse 95 96 Oximetry 10/20/20 10/20/20 10/20/20 03:29 08:02 08:58 Temperature 98.2 F 97.7 F Pulse Rate 72 68 68 Respiratory 16 18 Rate Blood Pressure 109/59 115/73 115/73 O2 Sat by Pulse 96 96 Oximetry 10/20/20 08:59 Temperature Pulse Rate 68 Respiratory Rate Blood Pressure 115/73 O2 Sat by Pulse Oximetry - General Apperance Constitutional: comfortable - EENT EENT: PERRL, mucous membranes moist - Respiratory Respiratory: chest non-tender, lungs clear - Cardiovascular Cardiovascular: regular rate, normal S1, normal S2 Extremities: no peripheral edema bilat - Gastrointestinal Gastrointestinal: normoactive bowel sounds - Integumentary Integumentary: normal - Neurologic Cranial nerve examination: PERRL, EOMI, intact Speech examination: sensory aphasia Detailed motor examination: grossly full strength in - Laboratory Findings CBC and BMP: 10/20/20 04:49 10/20/20 04:49 Abnormal Lab Findings: Abnormal Labs 10/18/20 10/18/20 10/20/20 21:07 Unknown 04:49 MCHC 35 H Lymph % (Auto) 36.5 H [place] % (Auto) 9.7 H Seg Neuts % (Manual) 39.0 L Lymphocytes % (Manual) 55.0 H Urine WBC (Auto) 9.0 H
[2020-10-20] MEDS: ACETAMINOPHEN 325 MG TAB PO PRN (16:44)
[2020-10-21] MEDS: oxyCODONE /ACETAMINOPHEN 5-325MG TAB PO PRN (03:08)
--- NOTE | 2020-10-21 08:13 | Progress Note ---
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 -Follow-up echocardiogram -Lipid profile -Continue Lipitor 40 mg daily Benzodiazepine withdrawal Hx anxiety/depression -Chronic use of Xanax 0.5 mg twice daily -Abrupt cessation of chronic BZD use x2 days due to insurance issues -Resume Xanax home dose -Case management consult placed -Psych consultation HTN -Monitor BP -Resume home hypertensive meds DVT and GI PPX -On heparin and Protonix History Interval history: No new issues overnight. No seizure activity. Hospitalist Physical - Constitutional Vitals: Temp Pulse Resp BP Pulse Ox 97.5 F L 70 16 115/59 95 10/21/20 04:03 10/21/20 04:03 10/21/20 04:03 10/21/20 04:03 10/21/20 04:03 General appearance: Present: no acute distress, well-nourished - EENT Eyes: Present: PERRL, EOM intact ENT: hearing intact, clear oral mucosa, dentition normal - Neck Neck: Present: supple, normal ROM - Respiratory Respiratory effort: normal Respiratory: bilateral: CTA - Cardiovascular Rhythm: regular Heart Sounds: Present: S1 & S2. Absent: gallop, rub - Extremities Extremities: no ischemia, No edema, Full ROM - Abdominal General gastrointestinal: soft, non-tender, non-distended, normal bowel sounds - Integumentary Integumentary: Present: clear, warm, dry - Neurologic Neurologic: CNII-XII intact, moves all extremities Results - Labs CBC & Chem 7: 10/20/20 04:49 10/20/20 04:49 Labs: Laboratory Last Values WBC 6.6 K/mm3 (4.5-11.0) 10/20/20 04:49 RBC 4.33 M/mm3 (3.65-5.03) 10/20/20 04:49 Hgb 12.6 gm/dl (10.1-14.3) 10/20/20 04:49 Hct 36.8 % (30.3-42.9) 10/20/20 04:49 MCV 85 fl (79-97) 10/20/20 04:49 MCH 29 pg (28-32) 10/20/20 04:49 MCHC 34 % (30-34) 10/20/20 04:49 RDW 14.5 % (13.2-15.2) 10/20/20 04:49 Plt Count 276 K/mm3 (140-440) 10/20/20 04:49 Lymph % (Auto) 36.5 % (13.4-35.0) H 10/18/20 21:07 [place] % (Auto) 9.7 % (0.0-7.3) H 10/18/20 21:07 Eos % (Auto) 0.3 % (0.0-4.3) 10/18/20 21:07 Baso % (Auto) 0.5 % (0.0-1.8) 10/18/20 21:07 Lymph # (Auto) 2.7 K/mm3 (1.2-5.4) 10/18/20 21:07 [place] # (Auto) 0.7 K/mm3 (0.0-0.8) 10/18/20 21:07 Eos # (Auto) 0.0 K/mm3 (0.0-0.4) 10/18/20 21:07 Baso # (Auto) 0.0 K/mm3 (0.0-0.1) 10/18/20 21:07 Add Manual Diff Complete 10/20/20 04:49 Total Counted 100 10/20/20 04:49 Seg Neutrophils % [place] 10/20/20 04:49 Seg Neuts % (Manual) 39.0 % (40.0-70.0) L 10/20/20 04:49 Lymphocytes % (Manual) 55.0 % (13.4-35.0) H 10/20/20 04:49 Monocytes % (Manual) 5.0 % (0.0-7.3) 10/20/20 04:49 Eosinophils % (Manual) 1.0 % (0.0-4.3) 10/20/20 04:49 Nucleated RBC % Not Reportable 10/20/20 04:49 Seg Neutrophils # 4.0 K/mm3 (1.8-7.7) 10/18/20 21:07 Seg Neutrophils # Man 2.6 K/mm3 (1.8-7.7) 10/20/20 04:49 Band Neutrophils # 0.0 K/mm3 10/20/20 04:49 Lymphocytes # (Manual) 3.6 K/mm3 (1.2-5.4) 10/20/20 04:49 Abs React Lymphs (Man) 0.0 K/mm3 10/20/20 04:49 Monocytes # (Manual) 0.3 K/mm3 (0.0-0.8) 10/20/20 04:49 Eosinophils # (Manual) 0.1 K/mm3 (0.0-0.4) 10/20/20 04:49 Basophils # (Manual) 0.0 K/mm3 (0.0-0.1) 10/20/20 04:49 Metamyelocytes # 0.0 K/mm3 10/20/20 04:49 Myelocytes # 0.0 K/mm3 10/20/20 04:49 Promyelocytes # 0.0 K/mm3 10/20/20 04:49 Blast Cells # 0.0 K/mm3 10/20/20 04:49 WBC Morphology Not Reportable 10/20/20 04:49 Hypersegmented Neuts Not Reportable 10/20/20 04:49 Hyposegmented Neuts Not Reportable 10/20/20 04:49 Hypogranular Neuts Not Reportable 10/20/20 04:49 Smudge Cells Not Reportable 10/20/20 04:49 Toxic Granulation Not Reportable 10/20/20 04:49 Toxic Vacuolation Not Reportable 10/20/20 04:49 Dohle Bodies Not Reportable 10/20/20 04:49 Pelger-Huet Anomaly Not Reportable 10/20/20 04:49 Anastacia Rods Not Reportable 10/20/20 04:49 Platelet Estimate Consistent w auto 10/20/20 04:49 Clumped Platelets Not Reportable 10/20/20 04:49 Plt Clumps, EDTA Not Reportable 10/20/20 04:49 Large Platelets Not Reportable 10/20/20 04:49 Giant Platelets Not Reportable 10/20/20 04:49 Platelet Satelliting Not Reportable 10/20/20 04:49 Plt Morphology Comment Not Reportable 10/20/20 04:49 RBC Morphology Not Reportable 10/20/20 04:49 Dimorphic RBCs Not Reportable 10/20/20 04:49 Polychromasia Not Reportable 10/20/20 04:49 Hypochromasia Not Reportable 10/20/20 04:49 Poikilocytosis Not Reportable 10/20/20 04:49 Anisocytosis 1+ 10/20/20 04:49 Microcytosis Not Reportable 10/20/20 04:49 Macrocytosis Not Reportable 10/20/20 04:49 Spherocytes Not Reportable 10/20/20 04:49 Pappenheimer Bodies Not Reportable 10/20/20 04:49 Sickle Cells Not Reportable 10/20/20 04:49 Target Cells Not Reportable 10/20/20 04:49 Tear Drop Cells Not Reportable 10/20/20 04:49 Ovalocytes Not Reportable 10/20/20 04:49 Helmet Cells Not Reportable 10/20/20 04:49 [place] Bodies Not Reportable 10/20/20 04:49 [place] Rings Not Reportable 10/20/20 04:49 Angus Cells Not Reportable 10/20/20 04:49 Bite Cells Not Reportable 10/20/20 04:49 Crenated Cell Not Reportable 10/20/20 04:49 Elliptocytes Not Reportable 10/20/20 04:49 Acanthocytes (Spur) Not Reportable 10/20/20 04:49 Rouleaux Not Reportable 10/20/20 04:49 Hemoglobin C Crystals Not Reportable 10/20/20 04:49 Schistocytes Not Reportable 10/20/20 04:49 Malaria parasites Not Reportable 10/20/20 04:49 Bradley Bodies Not Reportable 10/20/20 04:49 Hem Pathologist Commnt No 10/20/20 04:49 Sodium 143 mmol/L (137-145) 10/20/20 04:49 Potassium 3.8 mmol/L (3.6-5.0) 10/20/20 04:49 Chloride 106.7 mmol/L (98-107) 10/20/20 04:49 Carbon Dioxide 28 mmol/L (22-30) 10/20/20 04:49 Anion Gap 12 mmol/L 10/20/20 04:49 BUN 16 mg/dL (7-17) 10/20/20 04:49 Creatinine 0.7 mg/dL (0.6-1.2) 10/20/20 04:49 Estimated GFR > 60 ml/min 10/20/20 04:49 BUN/Creatinine Ratio 23 % 10/20/20 04:49 Glucose 87 mg/dL (65-100) 10/20/20 04:49 Hemoglobin A1c 5.3 % (4-6) 10/18/20 21:07 Calcium 8.4 mg/dL (8.4-10.2) 10/20/20 04:49 Triglycerides 123 mg/dL (2-149) 10/19/20 13:23 Cholesterol 134 mg/dL (50-199) 10/19/20 13:23 LDL Cholesterol Direct 68 mg/dL (50-130) 10/19/20 13:23 HDL Cholesterol 56 mg/dL (40-59) 10/19/20 13:23 Cholesterol/HDL Ratio 2.39 % 10/19/20 13:23 TSH 0.943 mlU/mL (0.270-4.200) 10/19/20 13:23 Urine Color Yellow (Yellow) 10/18/20 Unknown Urine Turbidity Clear (Clear) 10/18/20 Unknown Urine pH 6.0 (5.0-7.0) 10/18/20 Unknown Ur Specific [place] 1.014 (1.003-1.030) 10/18/20 Unknown Urine Protein <15 mg/dl mg/dL (Negative) 10/18/20 Unknown Urine Glucose (UA) Neg mg/dL (Negative) 10/18/20 Unknown Urine Ketones Neg mg/dL (Negative) 10/18/20 Unknown Urine Blood Neg (Negative) 10/18/20 Unknown Urine Nitrite Neg (Negative) 10/18/20 Unknown Urine Bilirubin Neg (Negative) 10/18/20 Unknown Urine Urobilinogen < 2.0 mg/dL (<2.0) 10/18/20 Unknown Ur Leukocyte Esterase Tr (Negative) 10/18/20 Unknown Urine WBC (Auto) 9.0 /HPF (0.0-6.0) H 10/18/20 Unknown Urine RBC (Auto) 2.0 /HPF (0.0-6.0) 10/18/20 Unknown U Epithel Cells (Auto) 4.0 /HPF (0-13.0) 10/18/20 Unknown Urine Mucus Few /HPF 10/18/20 Unknown Microbiology: Microbiology 10/18/20 Unknown Urine,Clean Catch Urine Culture - Final Kaplan/IV: Voiding Method Toilet Active Medications - Current Medications Current Medications: Generic Name Dose Route Start Last Admin Trade Name Freq PRN Reason Stop Dose Admin Acetaminophen 650 mg 10/18/20 23:50 10/20/20 16:44 Acetaminophen 325 Mg Tab PO 650 mg Q4H PRN Administration Pain MILD(1-3)/Fever >100.5/MENDEZ Alprazolam 0.5 mg 10/19/20 10:00 10/20/20 22:07 Alprazolam 0.5 Mg Tab PO 0.5 mg BID AMNA Administration Amlodipine Besylate 5 mg 10/19/20 10:00 10/20/20 08:59 Amlodipine 5 Mg Tab PO 5 mg DAILY MANA Administration Aspirin 325 mg 10/19/20 10:00 10/20/20 08:59 Aspirin 325 Mg Tab PO 325 mg QDAY MANA Administration Atorvastatin Calcium 40 mg 10/19/20 22:00 10/20/20 22:07 Atorvastatin 40 Mg Tab PO 40 mg QHS MANA Administration Heparin Sodium (Porcine) 5,000 unit 10/19/20 10:00 10/20/20 22:07 Heparin 5,000 Unit/1 Ml Vial SUB-Q 5,000 unit Q12HR MANA Administration Levetiracetam 1,000 mg/ 110 mls @ 400 mls/hr 10/19/20 10:00 10/20/20 22:07 Dextrose IV 400 mls/hr Q12HR MANA Administration Metoprolol Succinate 25 mg 10/19/20 08:00 10/20/20 08:58 Metoprolol Succinate Xl 25 Mg Tab PO 25 mg DAILY@0800 MANA Administration Ondansetron HCl 4 mg 10/18/20 23:50 10/19/20 01:20 Ondansetron 4 Mg/2 Ml Inj IV 4 mg Q6H PRN Administration Nausea And Vomiting Oxycodone/Acetaminophen 1 tab 10/18/20 23:50 10/21/20 03:08 Oxycodone /Acetaminophen 5-325mg Tab PO 1 tab Q6H PRN Administration Pain, Moderate (4-6) Pantoprazole Sodium 40 mg 10/19/20 10:00 10/20/20 08:59 Pantoprazole 40 Mg Tab PO 40 mg DAILY MANA Administration Sodium Chloride 10 ml 10/19/20 10:00 10/20/20 22:08 Sodium Chloride 0.9% 10 Ml Flush Syringe IV 10 ml BID MANA Administration Sodium Chloride 10 ml 10/18/20 23:50 Sodium Chloride 0.9% 10 Ml Flush Syringe IV PRN PRN LINE FLUSH
[2020-10-21] MEDS: ASPIRIN 325 MG TAB PO SCH (09:34)
[2020-10-21] MEDS: ALPRAZolam 0.5 MG TAB PO SCH ×2 (09:34→22:24)
[2020-10-21] MEDS: amLODIPine 5 MG TAB PO SCH (09:34)
[2020-10-21] MEDS: levETIRAcetam 1,000 MG in DEXTROSE 5% IN WATER 100 ML IV SCH (09:34)
[2020-10-21] MEDS: HEPARIN 5,000 UNIT/1 ML VIAL SUB-Q SCH ×2 (09:34→22:25)
[2020-10-21] MEDS: PANTOPRAZOLE 40 MG TAB PO SCH (09:34)
[2020-10-21] MEDS: METOPROLOL SUCCINATE XL 25 MG TAB PO SCH (09:34)
--- NOTE | 2020-10-21 11:49 | Progress Note ---
Assessment and Plan Assessment and Plan #Seizure Recurrent vs anxiety related attack ? -doubt to be related to anxiolytic withdrawal pt, show no sign of withdrawal , no seizure since admission -Initiate seizure precautions, fall precaution, aspiration precaution -EEG pending -PT/ OT eval pending -IV Ativan as needed -1 g IV or PO Keppra twice daily-- make PO -Brain MRI with Qd is pending # Confusion noted on exam today and yesterday ? perceptive aphasia can not be excluded - MRI brain is pending -mantain ASA and lipitor -US carotid is remarkable for <50% stenosis on right and 50-60% stenosis on left and complet occlusion left ECA -will order CTA brain and neck -Echo -review old record from [facility] when available ?? 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 Seizure Interval history: pt. continues to be confused and or aphasic she is unable to answear questions appropriately she repeat sentence again and again with the possibility of fluent aphasia can not be excluded !! MRI brain and CTA on hold Family wants us to get her work up form [facility] first ? Record is ordered Objective - Vital Sign Vital Signs - 12hr 10/21/20 10/21/20 10/21/20 00:00 04:03 08:00 Temperature 97.5 F L Pulse Rate 53 L 70 46 L Respiratory 16 Rate Blood Pressure 115/59 O2 Sat by Pulse 95 Oximetry 10/21/20 10/21/20 08:46 10:54 Temperature 98.0 F Pulse Rate 70 Respiratory 18 16 Rate Blood Pressure 123/59 O2 Sat by Pulse 92 98 Oximetry - General Apperance Constitutional: comfortable - EENT EENT: PERRL, mucous membranes moist, mucous membranes dry - Respiratory Respiratory: chest non-tender, lungs clear - Cardiovascular Cardiovascular: regular rate, normal S1, normal S2 Extremities: no peripheral edema bilat - Gastrointestinal Gastrointestinal: normoactive bowel sounds - Integumentary Integumentary: normal - Neurologic Cranial nerve examination: PERRL, EOMI, VFF, ptosis Speech examination: intact Detailed motor examination: grossly full strength in - Psychiatric Psychiatric: other (she is sleepy this am , knose her name only and is disoriented to dates and not answear questions approbialtly ? sensory aphasia ) - Laboratory Findings CBC and BMP: 10/20/20 04:49 10/20/20 04:49 Abnormal Lab Findings: Abnormal Labs 10/18/20 10/18/20 10/20/20 21:07 Unknown 04:49 MCHC 35 H Lymph % (Auto) 36.5 H [place] % (Auto) 9.7 H Seg Neuts % (Manual) 39.0 L Lymphocytes % (Manual) 55.0 H Urine WBC (Auto) 9.0 H
[2020-10-21] MEDS: CITALOPRAM 20 MG TAB PO SCH (12:33)
[2020-10-21] MEDS ORDERED: levETIRAcetam 500 MG TAB PO SCH (22:00)
[2020-10-21] MEDS: levETIRAcetam 500 MG/5 ML ORAL LIQD PO SCH (22:24)
[2020-10-22 05:48] LABS: Basophils % (Auto) 0.1 % (0.0-1.8); Eosinophils # (Auto) 0.1 K/mm3 (0.0-0.4); Eosinophils % (Auto) 1.1 % (0.0-4.3); Hematocrit 37.6 % (30.3-42.9); Hemoglobin 12.8 gm/dl (10.1-14.3); Lymphocytes # (Auto) 3.6 K/mm3 (1.2-5.4); Lymphocytes % (Auto) 53.2 % (13.4-35.0); Mean Corpuscular HGB Conc 34 % (30-34); Mean Corpuscular Volume 84 fl (79-97); Monocytes # (Auto) 0.7 K/mm3 (0.0-0.8); Monocytes % (Auto) 9.8 % (0.0-7.3); Platelet Count 283 K/mm3 (140-440); Red Blood Count 4.46 M/mm3 (3.65-5.03); Red Cell Distribution Width 14.4 % (13.2-15.2)
[2020-10-22 06:12] LABS: Blood Urea Nitrogen 13 mg/dL (7-17); Calcium 8.3 mg/dL (8.4-10.2); Hemolysis Index 1
[2020-10-22 06:16] LABS: BUN/Creatinine Ratio 22
--- NOTE | 2020-10-22 08:25 | Progress Note ---
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 -Follow-up echocardiogram -Lipid profile -Continue Lipitor 40 mg daily Benzodiazepine withdrawal Hx anxiety/depression -Chronic use of Xanax 0.5 mg twice daily -Abrupt cessation of chronic BZD use x2 days due to insurance issues -Resume Xanax home dose -Case management consult placed -Psych consultation HTN -Monitor BP -Resume home hypertensive meds DVT and GI PPX -On heparin and Protonix Patient was evaluated by neurology 10/22/2020 -Patient is doing well, no further seizures. Continue current medication re gimen. -Neurology evaluated and recommend mental health evaluation. -We will follow MRI of the brain. Disposition is per clinical course. History Interval history: Patient was seen and evaluated this morning No nursing issues overnight Patient does not have any complaints, patient does not have any seizure overnight Patient was alert and oriented Hospitalist Physical - Physical exam Narrative exam: Not in cardiopulmonary distress. The patient appeared well nourished and normally developed. Vital signs as documented. Head exam is unremarkable. No scleral icterus . Neck is without jugular venous distension, thyromegaly, or carotid bruits. Lungs are clear to auscultation. Cardiac exam reveals regular rate and Rhythm. Abdominal exam reveals normal bowel sounds, nontender, no organomegaly. Extremities are nonedematous and both femoral and pedal pulses are normal. ENGINEERING TEACHER: Patient was alert and oriented. No focal neurologic deficit. - Constitutional Vitals: Temp Pulse Resp BP Pulse Ox 97.9 F 70 16 114/55 92 10/22/20 04:07 10/22/20 04:07 10/22/20 04:07 10/22/20 04:07 10/22/20 04:07 General appearance: Present: no acute distress, well-nourished Results - Labs CBC & Chem 7: 10/22/20 04:24 10/22/20 04:24 Labs: Laboratory Last Values WBC 6.7 K/mm3 (4.5-11.0) 10/22/20 04:24 RBC 4.46 M/mm3 (3.65-5.03) 10/22/20 04:24 Hgb 12.8 gm/dl (10.1-14.3) 10/22/20 04:24 Hct 37.6 % (30.3-42.9) 10/22/20 04:24 MCV 84 fl (79-97) 10/22/20 04:24 MCH 29 pg (28-32) 10/22/20 04:24 MCHC 34 % (30-34) 10/22/20 04:24 RDW 14.4 % (13.2-15.2) 10/22/20 04:24 Plt Count 283 K/mm3 (140-440) 10/22/20 04:24 Lymph % (Auto) 53.2 % (13.4-35.0) H 10/22/20 04:24 [place] % (Auto) 9.8 % (0.0-7.3) H 10/22/20 04:24 Eos % (Auto) 1.1 % (0.0-4.3) 10/22/20 04:24 Baso % (Auto) 0.1 % (0.0-1.8) 10/22/20 04:24 Lymph # (Auto) 3.6 K/mm3 (1.2-5.4) 10/22/20 04:24 [place] # (Auto) 0.7 K/mm3 (0.0-0.8) 10/22/20 04:24 Eos # (Auto) 0.1 K/mm3 (0.0-0.4) 10/22/20 04:24 Baso # (Auto) 0.0 K/mm3 (0.0-0.1) 10/22/20 04:24 Add Manual Diff Complete 10/20/20 04:49 Total Counted 100 10/20/20 04:49 Seg Neutrophils % 35.8 % (40.0-70.0) L 10/22/20 04:24 Seg Neuts % (Manual) 39.0 % (40.0-70.0) L 10/20/20 04:49 Lymphocytes % (Manual) 55.0 % (13.4-35.0) H 10/20/20 04:49 Monocytes % (Manual) 5.0 % (0.0-7.3) 10/20/20 04:49 Eosinophils % (Manual) 1.0 % (0.0-4.3) 10/20/20 04:49 Nucleated RBC % Not Reportable 10/20/20 04:49 Seg Neutrophils # 2.4 K/mm3 (1.8-7.7) 10/22/20 04:24 Seg Neutrophils # Man 2.6 K/mm3 (1.8-7.7) 10/20/20 04:49 Band Neutrophils # 0.0 K/mm3 10/20/20 04:49 Lymphocytes # (Manual) 3.6 K/mm3 (1.2-5.4) 10/20/20 04:49 Abs React Lymphs (Man) 0.0 K/mm3 10/20/20 04:49 Monocytes # (Manual) 0.3 K/mm3 (0.0-0.8) 10/20/20 04:49 Eosinophils # (Manual) 0.1 K/mm3 (0.0-0.4) 10/20/20 04:49 Basophils # (Manual) 0.0 K/mm3 (0.0-0.1) 10/20/20 04:49 Metamyelocytes # 0.0 K/mm3 10/20/20 04:49 Myelocytes # 0.0 K/mm3 10/20/20 04:49 Promyelocytes # 0.0 K/mm3 10/20/20 04:49 Blast Cells # 0.0 K/mm3 10/20/20 04:49 WBC Morphology Not Reportable 10/20/20 04:49 Hypersegmented Neuts Not Reportable 10/20/20 04:49 Hyposegmented Neuts Not Reportable 10/20/20 04:49 Hypogranular Neuts Not Reportable 10/20/20 04:49 Smudge Cells Not Reportable 10/20/20 04:49 Toxic Granulation Not Reportable 10/20/20 04:49 Toxic Vacuolation Not Reportable 10/20/20 04:49 Dohle Bodies Not Reportable 10/20/20 04:49 Pelger-Huet Anomaly Not Reportable 10/20/20 04:49 Anastacia Rods Not Reportable 10/20/20 04:49 Platelet Estimate Consistent w auto 10/20/20 04:49 Clumped Platelets Not Reportable 10/20/20 04:49 Plt Clumps, EDTA Not Reportable 10/20/20 04:49 Large Platelets Not Reportable 10/20/20 04:49 Giant Platelets Not Reportable 10/20/20 04:49 Platelet Satelliting Not Reportable 10/20/20 04:49 Plt Morphology Comment Not Reportable 10/20/20 04:49 RBC Morphology Not Reportable 10/20/20 04:49 Dimorphic RBCs Not Reportable 10/20/20 04:49 Polychromasia Not Reportable 10/20/20 04:49 Hypochromasia Not Reportable 10/20/20 04:49 Poikilocytosis Not Reportable 10/20/20 04:49 Anisocytosis 1+ 10/20/20 04:49 Microcytosis Not Reportable 10/20/20 04:49 Macrocytosis Not Reportable 10/20/20 04:49 Spherocytes Not Reportable 10/20/20 04:49 Pappenheimer Bodies Not Reportable 10/20/20 04:49 Sickle Cells Not Reportable 10/20/20 04:49 Target Cells Not Reportable 10/20/20 04:49 Tear Drop Cells Not Reportable 10/20/20 04:49 Ovalocytes Not Reportable 10/20/20 04:49 Helmet Cells Not Reportable 10/20/20 04:49 [place] Bodies Not Reportable 10/20/20 04:49 [place] Rings Not Reportable 10/20/20 04:49 Angus Cells Not Reportable 10/20/20 04:49 Bite Cells Not Reportable 10/20/20 04:49 Crenated Cell Not Reportable 10/20/20 04:49 Elliptocytes Not Reportable 10/20/20 04:49 Acanthocytes (Spur) Not Reportable 10/20/20 04:49 Rouleaux Not Reportable 10/20/20 04:49 Hemoglobin C Crystals Not Reportable 10/20/20 04:49 Schistocytes Not Reportable 10/20/20 04:49 Malaria parasites Not Reportable 10/20/20 04:49 [place] Bodies Not Reportable 10/20/20 04:49 Hem Pathologist Commnt No 10/20/20 04:49 Sodium 142 mmol/L (137-145) 10/22/20 04:24 Potassium 3.5 mmol/L (3.6-5.0) L 10/22/20 04:24 Chloride 104.4 mmol/L (98-107) 10/22/20 04:24 Carbon Dioxide 26 mmol/L (22-30) 10/22/20 04:24 Anion Gap 15 mmol/L 10/22/20 04:24 BUN 13 mg/dL (7-17) 10/22/20 04:24 Creatinine 0.6 mg/dL (0.6-1.2) 10/22/20 04:24 Estimated GFR > 60 ml/min 10/22/20 04:24 BUN/Creatinine Ratio 22 % 10/22/20 04:24 Glucose 82 mg/dL (65-100) 10/22/20 04:24 Hemoglobin A1c 5.3 % (4-6) 10/18/20 21:07 Calcium 8.3 mg/dL (8.4-10.2) L 10/22/20 04:24 Triglycerides 123 mg/dL (2-149) 10/19/20 13:23 Cholesterol 134 mg/dL (50-199) 10/19/20 13:23 LDL Cholesterol Direct 68 mg/dL (50-130) 10/19/20 13:23 HDL Cholesterol 56 mg/dL (40-59) 10/19/20 13:23 Cholesterol/HDL Ratio 2.39 % 10/19/20 13:23 TSH 0.943 mlU/mL (0.270-4.200) 10/19/20 13:23 Urine Color Yellow (Yellow) 10/18/20 Unknown Urine Turbidity Clear (Clear) 10/18/20 Unknown Urine pH 6.0 (5.0-7.0) 10/18/20 Unknown Ur Specific [place] 1.014 (1.003-1.030) 10/18/20 Unknown Urine Protein <15 mg/dl mg/dL (Negative) 10/18/20 Unknown Urine Glucose (UA) Neg mg/dL (Negative) 10/18/20 Unknown Urine Ketones Neg mg/dL (Negative) 10/18/20 Unknown Urine Blood Neg (Negative) 10/18/20 Unknown Urine Nitrite Neg (Negative) 10/18/20 Unknown Urine Bilirubin Neg (Negative) 10/18/20 Unknown Urine Urobilinogen < 2.0 mg/dL (<2.0) 10/18/20 Unknown Ur Leukocyte Esterase Tr (Negative) 10/18/20 Unknown Urine WBC (Auto) 9.0 /HPF (0.0-6.0) H 10/18/20 Unknown Urine RBC (Auto) 2.0 /HPF (0.0-6.0) 10/18/20 Unknown U Epithel Cells (Auto) 4.0 /HPF (0-13.0) 10/18/20 Unknown Urine Mucus Few /HPF 10/18/20 Unknown Kaplan/IV: Voiding Method Toilet Active Medications - Current Medications Current Medications: Generic Name Dose Route Start Last Admin Trade Name Freq PRN Reason Stop Dose Admin Acetaminophen 650 mg 10/18/20 23:50 10/20/20 16:44 Acetaminophen 325 Mg Tab PO 650 mg Q4H PRN Administration Pain MILD(1-3)/Fever >100.5/MENDEZ Alprazolam 0.5 mg 10/19/20 10:00 10/21/20 22:24 Alprazolam 0.5 Mg Tab PO 0.5 mg BID MANA Administration Amlodipine Besylate 5 mg 10/19/20 10:00 10/21/20 09:34 Amlodipine 5 Mg Tab PO 5 mg DAILY MANA Administration Aspirin 325 mg 10/19/20 10:00 10/21/20 09:34 Aspirin 325 Mg Tab PO 325 mg QDAY MANA Administration Atorvastatin Calcium 40 mg 10/19/20 22:00 10/21/20 22:24 Atorvastatin 40 Mg Tab PO 40 mg QHS MANA Administration Citalopram Hydrobromide 20 mg 10/21/20 13:00 10/21/20 12:33 Citalopram 20 Mg Tab PO 20 mg QDAY MANA Administration Heparin Sodium (Porcine) 5,000 unit 10/19/20 10:00 10/21/20 22:25 Heparin 5,000 Unit/1 Ml Vial SUB-Q 5,000 unit Q12HR MANA Administration Levetiracetam 1,000 mg 10/21/20 22:00 10/21/20 22:24 Levetiracetam 500 Mg/5 Ml Oral Liqd PO 1,000 mg BID MANA Administration Metoprolol Succinate 25 mg 10/19/20 08:00 10/21/20 09:34 Metoprolol Succinate Xl 25 Mg Tab PO 25 mg DAILY@0800 MANA Administration Ondansetron HCl 4 mg 10/18/20 23:50 10/19/20 01:20 Ondansetron 4 Mg/2 Ml Inj IV 4 mg Q6H PRN Administration Nausea And Vomiting Oxycodone/Acetaminophen 1 tab 10/18/20 23:50 10/21/20 03:08 Oxycodone /Acetaminophen 5-325mg Tab PO 1 tab Q6H PRN Administration Pain, Moderate (4-6) Pantoprazole Sodium 40 mg 10/19/20 10:00 10/21/20 09:34 Pantoprazole 40 Mg Tab PO 40 mg DAILY MANA Administration Sodium Chloride 10 ml 10/19/20 10:00 10/21/20 22:25 Sodium Chloride 0.9% 10 Ml Flush Syringe IV 10 ml BID MANA Administration Sodium Chloride 10 ml 10/18/20 23:50 Sodium Chloride 0.9% 10 Ml Flush Syringe IV PRN PRN LINE FLUSH
--- NOTE | 2020-10-22 08:47 | Progress Note ---
Assessment and Plan Assessment and Plan #Seizure Recurrent vs anxiety related attack ? -doubt to be related to anxiolytic withdrawal pt, show no sign of withdrawal , no seizure since admission -Initiate seizure precautions, fall precaution, aspiration precaution -EEG pending to be done today -PT/ OT eval pending -IV Ativan as needed -1 g IV or PO Keppra twice daily-- make PO -Brain MRI with Qd is pending # Confusion noted on exam today and yesterday ? perceptive aphasia can not be excluded - MRI brain is pending -mantain ASA and lipitor -US carotid is remarkable for <50% stenosis on right and 50-60% stenosis on left and complet occlusion left ECA -will order CTA brain and neck -Echo is pending -review old record from [facility] when available ?? #Underlying anxiety and or depression -Chronic use of Xanax 0.5 mg twice daily -Resume Xanax home dose -Start on Celexa 20 mg daily -consider psychiatry evaluation !!!! 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 Seizure Interval history: pt. continues to be confused and or aphasic she is unable to answear questions appropriately she repeat sentence again and again with the possibility of fluent aphasia can not be excluded !! MRI brain and CTA on hold Family wants us to get her work up form [facility] first ? Record is ordered no record available for review and work up is on hold !!! Objective - Vital Sign Vital Signs - 12hr 10/21/20 10/22/20 10/22/20 22:00 00:02 01:00 Temperature 98.1 F Pulse Rate 62 62 Pulse Rate [ 60 From Monitor] Respiratory 18 16 Rate Blood Pressure 109/39 O2 Sat by Pulse 98 92 Oximetry 10/22/20 04:07 Temperature 97.9 F Pulse Rate 70 Pulse Rate [ From Monitor] Respiratory 16 Rate Blood Pressure 114/55 O2 Sat by Pulse 92 Oximetry - General Apperance Constitutional: comfortable - EENT EENT: PERRL, mucous membranes moist - Respiratory Respiratory: chest non-tender, lungs clear, rhonchi - Cardiovascular Cardiovascular: regular rate, normal S1, normal S2 Extremities: no peripheral edema bilat, no clubbing, cyanosis - Gastrointestinal Gastrointestinal: normoactive bowel sounds - Integumentary Integumentary: normal - Neurologic Cranial nerve examination: PERRL, EOMI, intact Speech examination: intact, sensory aphasia Detailed motor examination: grossly full strength in - Laboratory Findings CBC and BMP: 10/22/20 04:24 10/22/20 04:24 Abnormal Lab Findings: Abnormal Labs 10/18/20 10/18/20 10/20/20 21:07 Unknown 04:49 MCHC 35 H Lymph % (Auto) 36.5 H [place] % (Auto) 9.7 H Seg Neutrophils % Seg Neuts % (Manual) 39.0 L Lymphocytes % (Manual) 55.0 H Potassium Calcium Urine WBC (Auto) 9.0 H 10/22/20 10/22/20 04:24 04:24 MCHC Lymph % (Auto) 53.2 H [place] % (Auto) 9.8 H Seg Neutrophils % 35.8 L Seg Neuts % (Manual) Lymphocytes % (Manual) Potassium 3.5 L Calcium 8.3 L Urine WBC (Auto)
[2020-10-22] MEDS: METOPROLOL SUCCINATE XL 25 MG TAB PO SCH (08:58)
[2020-10-22] MEDS: CITALOPRAM 20 MG TAB PO SCH (09:00)
[2020-10-22] MEDS: levETIRAcetam 500 MG/5 ML ORAL LIQD PO SCH ×2 (09:00→22:07)
[2020-10-22] MEDS: ASPIRIN 325 MG TAB PO SCH (09:00)
[2020-10-22] MEDS: ALPRAZolam 0.5 MG TAB PO SCH ×2 (09:00→22:07)
[2020-10-22] MEDS: PANTOPRAZOLE 40 MG TAB PO SCH (09:00)
[2020-10-22] MEDS: amLODIPine 5 MG TAB PO SCH (09:00)
[2020-10-22] MEDS: HEPARIN 5,000 UNIT/1 ML VIAL SUB-Q SCH ×2 (09:01→22:07)
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
--- NOTE | 2020-10-22 10:25 | Event Note ---
Date: 10/22/20 Psychiatry attempted to see patient, per psychiatry consult but patient not in room, will see patient tomorrow.
[2020-10-22] MEDS: oxyCODONE /ACETAMINOPHEN 5-325MG TAB PO PRN (11:49)
--- NOTE | 2020-10-22 13:35 | Magnetic Resonance Report ---
MRI BRAIN WITHOUT CONTRAST INDICATION / CLINICAL INFORMATION: Altered mental status, right-sided weakness and seizures. TECHNIQUE: Multiplanar, multisequence MR images of the brain were obtained. COMPARISON: MRI brain 12/21/[address] 12/20/2019. FINDINGS: BRAIN / INTRACRANIAL CONTENTS: Large area of encephalomalacia is observed involving portions of the left temporal, occipital and par ietal lobes. Dystrophic calcification is seen in this region, first demonstrated on head CT 12/20/2019 . Expected dilatation of the sylvian fissure, adjacent cortical sulci and atria and occipital horn of the left lateral ventricle is again observed unchanged from prior study. Small areas of encephalomal acia are observed in the white matter of the evans radiata adjacent frontal horn and anterior body o f the right lateral ventricle were numerous remote small deep infarctions are evident. Moderate micro vascular ischemic changes are present in both cerebral hemispheres. Elsewhere, the ventricles and cortical sulci are normal in size and configuration. There is no mass e ffect. No evidence of intracranial hemorrhage or extra-axial fluid collection is seen. No additional areas of abnormal brain parenchymal signal intensity are identified. There is no indication of remote cortical infarction. Diffusion weighted scans are negative. There is no indication of acute ischemic injury. The brainstem and cerebellum have an unremarkable appearance. MIDLINE STRUCTURES: Dilatation of the sella turcica is noted. Sella turcica is largely filled with ce rebrospinal fluid signal intensity consistent with "empty sella turcica". No additional abnormalities are seen to involve the pituitary gland. Pineal region has an unremarkable appearance. CRANIOCERVICAL JUNCTION: No abnormalities are identified at the craniocervical junction. VASCULAR FLOW-VOIDS: Normal flow-voids are present within the major intracranial vessels. ORBITS: The orbits have an unremarkable appearance. SINUSES / MASTOIDS: There is no indication of inflammatory disease in the paranasal sinuses or mastoi d air cells. IMPRESSION: 1. Again demonstrated is a large area of encephalomalacia involving portions of the left temporal lob e, left parietal lobe and left occipital lobe. There is an unusual degree of dystrophic calcification in this region stable since prior studies. 2. No acute intracranial abnormalities are identified. Signer Name: Bassam Clifford MD Signed: 10/22/2020 1:30 PM Workstation Name: [id number]
--- NOTE | 2020-10-23 09:07 | Progress Note ---
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 -Follow-up echocardiogram -Lipid profile -Continue Lipitor 40 mg daily Benzodiazepine withdrawal Hx anxiety/depression -Chronic use of Xanax 0.5 mg twice daily -Abrupt cessation of chronic BZD use x2 days due to insurance issues -Resume Xanax home dose -Case management consult placed -Psych consultation HTN -Monitor BP -Resume home hypertensive meds DVT and GI PPX -On heparin and Protonix Patient was evaluated by neurology 10/22/2020 -Patient is doing well, no further seizures. Continue current medication re gimen. -Neurology evaluated and recommend mental health evaluation. -We will follow MRI of the brain. Disposition is per clinical course. 10/23/2020 -We will follow neurology recommendation -PT OT evaluation History Interval history: Patient was seen and evaluated this morning No nursing issues overnight Patient does not have any complaints, patient does not have any seizure overnight Patient was alert and oriented Hospitalist Physical - Physical exam Narrative exam: Not in cardiopulmonary distress. The patient appeared well nourished and normally developed. Vital signs as documented. Head exam is unremarkable. No scleral icterus . Neck is without jugular venous distension, thyromegaly, or carotid bruits. Lungs are clear to auscultation. Cardiac exam reveals regular rate and Rhythm. Abdominal exam reveals normal bowel sounds, nontender, no organomegaly. Extremities are nonedematous and both femoral and pedal pulses are normal. 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 No focal neurologic deficit. - Constitutional Vitals: Temp Pulse Resp BP Pulse Ox 98.1 F 86 18 120/73 98 10/23/20 07:46 10/23/20 07:46 10/23/20 07:46 10/23/20 07:46 10/23/20 07:46 General appearance: Present: no acute distress, well-nourished Results - Labs CBC & Chem 7: 10/22/20 04:24 10/22/20 04:24 Labs: Laboratory Last Values WBC 6.7 K/mm3 (4.5-11.0) 10/22/20 04:24 RBC 4.46 M/mm3 (3.65-5.03) 10/22/20 04:24 Hgb 12.8 gm/dl (10.1-14.3) 10/22/20 04:24 Hct 37.6 % (30.3-42.9) 10/22/20 04:24 MCV 84 fl (79-97) 10/22/20 04:24 MCH 29 pg (28-32) 10/22/20 04:24 MCHC 34 % (30-34) 10/22/20 04:24 RDW 14.4 % (13.2-15.2) 10/22/20 04:24 Plt Count 283 K/mm3 (140-440) 10/22/20 04:24 Lymph % (Auto) 53.2 % (13.4-35.0) H 10/22/20 04:24 [place] % (Auto) 9.8 % (0.0-7.3) H 10/22/20 04:24 Eos % (Auto) 1.1 % (0.0-4.3) 10/22/20 04:24 Baso % (Auto) 0.1 % (0.0-1.8) 10/22/20 04:24 Lymph # (Auto) 3.6 K/mm3 (1.2-5.4) 10/22/20 04:24 [place] # (Auto) 0.7 K/mm3 (0.0-0.8) 10/22/20 04:24 Eos # (Auto) 0.1 K/mm3 (0.0-0.4) 10/22/20 04:24 Baso # (Auto) 0.0 K/mm3 (0.0-0.1) 10/22/20 04:24 Add Manual Diff Complete 10/20/20 04:49 Total Counted 100 10/20/20 04:49 Seg Neutrophils % 35.8 % (40.0-70.0) L 10/22/20 04:24 Seg Neuts % (Manual) 39.0 % (40.0-70.0) L 10/20/20 04:49 Lymphocytes % (Manual) 55.0 % (13.4-35.0) H 10/20/20 04:49 Monocytes % (Manual) 5.0 % (0.0-7.3) 10/20/20 04:49 Eosinophils % (Manual) 1.0 % (0.0-4.3) 10/20/20 04:49 Nucleated RBC % Not Reportable 10/20/20 04:49 Seg Neutrophils # 2.4 K/mm3 (1.8-7.7) 10/22/20 04:24 Seg Neutrophils # Man 2.6 K/mm3 (1.8-7.7) 10/20/20 04:49 Band Neutrophils # 0.0 K/mm3 10/20/20 04:49 Lymphocytes # (Manual) 3.6 K/mm3 (1.2-5.4) 10/20/20 04:49 Abs React Lymphs (Man) 0.0 K/mm3 10/20/20 04:49 Monocytes # (Manual) 0.3 K/mm3 (0.0-0.8) 10/20/20 04:49 Eosinophils # (Manual) 0.1 K/mm3 (0.0-0.4) 10/20/20 04:49 Basophils # (Manual) 0.0 K/mm3 (0.0-0.1) 10/20/20 04:49 Metamyelocytes # 0.0 K/mm3 10/20/20 04:49 Myelocytes # 0.0 K/mm3 10/20/20 04:49 Promyelocytes # 0.0 K/mm3 10/20/20 04:49 Blast Cells # 0.0 K/mm3 10/20/20 04:49 WBC Morphology Not Reportable 10/20/20 04:49 Hypersegmented Neuts Not Reportable 10/20/20 04:49 Hyposegmented Neuts Not Reportable 10/20/20 04:49 Hypogranular Neuts Not Reportable 10/20/20 04:49 Smudge Cells Not Reportable 10/20/20 04:49 Toxic Granulation Not Reportable 10/20/20 04:49 Toxic Vacuolation Not Reportable 10/20/20 04:49 Dohle Bodies Not Reportable 10/20/20 04:49 Pelger-Huet Anomaly Not Reportable 10/20/20 04:49 Anastacia Rods Not Reportable 10/20/20 04:49 Platelet Estimate Consistent w auto 10/20/20 04:49 Clumped Platelets Not Reportable 10/20/20 04:49 Plt Clumps, EDTA Not Reportable 10/20/20 04:49 Large Platelets Not Reportable 10/20/20 04:49 Giant Platelets Not Reportable 10/20/20 04:49 Platelet Satelliting Not Reportable 10/20/20 04:49 Plt Morphology Comment Not Reportable 10/20/20 04:49 RBC Morphology Not Reportable 10/20/20 04:49 Dimorphic RBCs Not Reportable 10/20/20 04:49 Polychromasia Not Reportable 10/20/20 04:49 Hypochromasia Not Reportable 10/20/20 04:49 Poikilocytosis Not Reportable 10/20/20 04:49 Anisocytosis 1+ 10/20/20 04:49 Microcytosis Not Reportable 10/20/20 04:49 Macrocytosis Not Reportable 10/20/20 04:49 Spherocytes Not Reportable 10/20/20 04:49 Pappenheimer Bodies Not Reportable 10/20/20 04:49 Sickle Cells Not Reportable 10/20/20 04:49 Target Cells Not Reportable 10/20/20 04:49 Tear Drop Cells Not Reportable 10/20/20 04:49 Ovalocytes Not Reportable 10/20/20 04:49 Helmet Cells Not Reportable 10/20/20 04:[address] [place] Bodies Not Reportable 10/20/20 04:49 [place] Rings Not Reportable 10/20/20 04:49 Angus Cells Not Reportable 10/20/20 04:49 Bite Cells Not Reportable 10/20/20 04:49 Crenated Cell Not Reportable 10/20/20 04:49 Elliptocytes Not Reportable 10/20/20 04:49 Acanthocytes (Spur) Not Reportable 10/20/20 04:49 Rouleaux Not Reportable 10/20/20 04:49 Hemoglobin C Crystals Not Reportable 10/20/20 04:49 Schistocytes Not Reportable 10/20/20 04:49 Malaria parasites Not Reportable 10/20/20 04:49 [place] Bodies Not Reportable 10/20/20 04:49 Hem Pathologist Commnt No 10/20/20 04:49 Sodium 142 mmol/L (137-145) 10/22/20 04:24 Potassium 3.5 mmol/L (3.6-5.0) L 10/22/20 04:24 Chloride 104.4 mmol/L (98-107) 10/22/20 04:24 Carbon Dioxide 26 mmol/L (22-30) 10/22/20 04:24 Anion Gap 15 mmol/L 10/22/20 04:24 BUN 13 mg/dL (7-17) 10/22/20 04:24 Creatinine 0.6 mg/dL (0.6-1.2) 10/22/20 04:24 Estimated GFR > 60 ml/min 10/22/20 04:24 BUN/Creatinine Ratio 22 % 10/22/20 04:24 Glucose 82 mg/dL (65-100) 10/22/20 04:24 Hemoglobin A1c 5.3 % (4-6) 10/18/20 21:07 Calcium 8.3 mg/dL (8.4-10.2) L 10/22/20 04:24 Triglycerides 123 mg/dL (2-149) 10/19/20 13:23 Cholesterol 134 mg/dL (50-199) 10/19/20 13:23 LDL Cholesterol Direct 68 mg/dL (50-130) 10/19/20 13:23 HDL Cholesterol 56 mg/dL (40-59) 10/19/20 13:23 Cholesterol/HDL Ratio 2.39 % 10/19/20 13:23 TSH 0.943 mlU/mL (0.270-4.200) 10/19/20 13:23 Urine Color Yellow (Yellow) 10/18/20 Unknown Urine Turbidity Clear (Clear) 10/18/20 Unknown Urine pH 6.0 (5.0-7.0) 10/18/20 Unknown Ur Specific [place] 1.014 (1.003-1.030) 10/18/20 Unknown Urine Protein <15 mg/dl mg/dL (Negative) 10/18/20 Unknown Urine Glucose (UA) Neg mg/dL (Negative) 10/18/20 Unknown Urine Ketones Neg mg/dL (Negative) 10/18/20 Unknown Urine Blood Neg (Negative) 10/18/20 Unknown Urine Nitrite Neg (Negative) 10/18/20 Unknown Urine Bilirubin Neg (Negative) 10/18/20 Unknown Urine Urobilinogen < 2.0 mg/dL (<2.0) 10/18/20 Unknown Ur Leukocyte Esterase Tr (Negative) 10/18/20 Unknown Urine WBC (Auto) 9.0 /HPF (0.0-6.0) H 10/18/20 Unknown Urine RBC (Auto) 2.0 /HPF (0.0-6.0) 10/18/20 Unknown U Epithel Cells (Auto) 4.0 /HPF (0-13.0) 10/18/20 Unknown Urine Mucus Few /HPF 10/18/20 Unknown Kaplan/IV: Voiding Method Toilet Active Medications - Current Medications Current Medications: Generic Name Dose Route Start Last Admin Trade Name Freq PRN Reason Stop Dose Admin Acetaminophen 650 mg 10/18/20 23:50 10/20/20 16:44 Acetaminophen 325 Mg Tab PO 650 mg Q4H PRN Administration Pain MILD(1-3)/Fever >100.5/MENDEZ Alprazolam 0.5 mg 10/19/20 10:00 10/22/20 22:07 Alprazolam 0.5 Mg Tab PO 0.5 mg BID MANA Administration Amlodipine Besylate 5 mg 10/19/20 10:00 10/22/20 09:00 Amlodipine 5 Mg Tab PO 5 mg DAILY MANA Administration Aspirin 325 mg 10/19/20 10:00 10/22/20 09:00 Aspirin 325 Mg Tab PO 325 mg QDAY MANA Administration Atorvastatin Calcium 40 mg 10/19/20 22:00 10/22/20 22:07 Atorvastatin 40 Mg Tab PO 40 mg QHS MANA Administration Citalopram Hydrobromide 20 mg 10/21/20 13:00 10/22/20 09:00 Citalopram 20 Mg Tab PO 20 mg QDAY MANA Administration Heparin Sodium (Porcine) 5,000 unit 10/19/20 10:00 10/22/20 22:07 Heparin 5,000 Unit/1 Ml Vial SUB-Q 5,000 unit Q12HR MANA Administration Levetiracetam 1,000 mg 10/21/20 22:00 10/22/20 22:07 Levetiracetam 500 Mg/5 Ml Oral Liqd PO 1,000 mg BID MANA Administration Metoprolol Succinate 25 mg 10/19/20 08:00 10/22/20 08:58 Metoprolol Succinate Xl 25 Mg Tab PO 25 mg DAILY@0800 MANA Administration Ondansetron HCl 4 mg 10/18/20 23:50 10/19/20 01:20 Ondansetron 4 Mg/2 Ml Inj IV 4 mg Q6H PRN Administration Nausea And Vomiting Oxycodone/Acetaminophen 1 tab 10/18/20 23:50 10/22/20 11:49 Oxycodone /Acetaminophen 5-325mg Tab PO 1 tab Q6H PRN Administration Pain, Moderate (4-6) Pantoprazole Sodium 40 mg 10/19/20 10:00 10/22/20 09:00 Pantoprazole 40 Mg Tab PO 40 mg DAILY MANA Administration Sodium Chloride 10 ml 10/19/20 10:00 10/22/20 22:16 Sodium Chloride 0.9% 10 Ml Flush Syringe IV 10 ml BID MANA Administration Sodium Chloride 10 ml 10/18/20 23:50 Sodium Chloride 0.9% 10 Ml Flush Syringe IV PRN PRN LINE FLUSH
--- NOTE | 2020-10-23 09:58 | Consultation ---
History of Present Illness - Reason for Consult Consult date: 10/23/20 Reason for consult: MHE Requesting physician: MICHELLE DALTON - History of Present Psychiatric Illness PSYCH HPI Patient is a 65 year old female admitted to the hospital for benzodiazepine withdrawal concerns with psychiatric consult for depression. Patient seen in room. Patient says she is in a place where place where they are teaching her to walk right, and talk right. Patient states this time of the day she does not talk right. Patient is disoriented, when asked what depression means, patient unable to provide response. She does not know she is in a hospital. PAST PSYCHIATRIC HISTORY Diagnoses: n/a Suicide attempts or Self-harm behavior: n/a Prior psychiatric hospitalizations: n/a Substance Abuse history: n/a Previous psychiatric medications tried: n/a Outpatient treatment: n/a PAST MEDICAL HISTORY: n/a Family Psychiatric History: None reported or documented SOCIAL HISTORY Marital Status:n/a Living Arrangements: n/a Employment Status: n/a Access to guns/weapon s:n/a Education: n/a History of Abuse: n/a Legal History: n/a REVIEW OF SYSTEMS Constitutional: Negative for weight loss ENT: Negative for stridor Respiratory: Negative for cough or hemoptysis All other systems reviewed and are negative MENTAL STATUS EXAMINATION General Appearance and Behavior: Age appropriate, good hygiene, wearing appropriate clothes, uncooperative polite with questioning. Cooperation: Withdrawn Psychomotor Behavior: Psychomotor agitation Mood: Affect and affective range: Flat Thought Process: Tangential, loose associattion Thought Content: Paranoid and confused Speech: Normal volume, Regular rate and rhythm, Intellectual Functioning: Poor Suicidal Ideation: N/A Homicidal Ideation: N/A Impulse Control: Unimpaired Insight and Judgment: Impaired Memory: memory impaired Attention:Distractible, Orientation: Alert, but disoriented and confused Assessment and Plan - Psychiatric problem (1) AMS (altered mental status) Current Visit: Yes Status: Acute Treatment Plan Patient presents as confused and disoriented. Unable to provide any pertinent information as related to her hospital admission. Psych consult for hx of depression and anxiety medications. No acute intervention, pt baseline unknown, she is altered and confused. MRI with large area of encephalomalacia. Moderate suspicion for dementia at this time. MEDICATIONS: Risks, benefits and alternatives of medications discussed with the patient, questions answered and consent obtained from patient. PSYCHOTHERAPY: Supportive psychotherapy provided MEDICAL: Per primary team DELIRIUM PRECAUTIONS: Please re-orient patient frequently, keep lights on during the day, and minimize benzodiazepines and opiates as these medications could worsen patient's confusion. BOOKMAKER MAP: DISPOSITION: Do Not Recommend acute inpatient psychiatric hospitalization at this time. Case discussed with Dr. Chacon who agrees with current disposit FOLLOW-UP: Will sign off Thank you for the consult. Please contact with any questions and/or concerns. Medications and Allergies Allergies Allergy/AdvReac Type Severity Reaction Status Date / Time No Known Allergies Allergy Verified 10/18/20 22:12 Home Medications Medication Instructions Recorded Confirmed Last Taken Type AtorvaSTATin [Lipitor] 40 mg PO QHS 12/20/19 10/19/20 Unknown History Lansoprazole [Prevacid] 15 mg PO QDAY 12/20/19 10/19/20 Unknown History amLODIPine 5 mg PO DAILY 12/20/19 10/19/20 Unknown History ALPRAZolam [Xanax TAB] 0.5 mg PO BID tablet 12/21/19 10/19/20 Unknown Rx Aspirin 325 mg PO QDAY tablet 12/21/19 10/19/20 Unknown Rx Metoprolol Xl [Metoprolol 25 mg PO DAILY tablet 12/21/19 10/19/20 Unknown Rx SUCCINATE ER TAB] Pantoprazole [Protonix TAB] 40 mg PO DAILY tablet 12/21/19 10/19/20 Unknown Rx Verapamil ER [Calan SR] 180 mg PO QHS tablet 12/21/19 10/19/20 Unknown Rx levETIRAcetam [Keppra] 1,500 mg PO BID 60 Days 12/21/19 10/19/20 Unknown Rx Ondansetron [Zofran Odt] 1 tab PO Q8HR PRN #5 tab.rapdis 02/26/20 10/19/20 Unknown Rx Active Meds: Active Medications Acetaminophen (Acetaminophen 325 Mg Tab) 650 mg PO Q4H PRN PRN Reason: Pain MILD(1-3)/Fever >100.5/MENDEZ Last Admin: 10/20/20 16:44 Dose: 650 mg Documented by: Alprazolam (Alprazolam 0.5 Mg Tab) 0.5 mg PO BID MANA Last Admin: 10/22/20 22:07 Dose: 0.5 mg Documented by: Amlodipine Besylate (Amlodipine 5 Mg Tab) 5 mg PO DAILY [facility] Last Admin: 10/22/20 09:00 Dose: 5 mg Documented by: Aspirin (Aspirin 325 Mg Tab) 325 mg PO QDAY [facility] Last Admin: 10/22/20 09:00 Dose: 325 mg Documented by: Atorvastatin Calcium (Atorvastatin 40 Mg Tab) 40 mg PO QHS [facility] Last Admin: 10/22/20 22:07 Dose: 40 mg Documented by: Citalopram Hydrobromide (Citalopram 20 Mg Tab) 20 mg PO QDAY [facility] Last Admin: 10/22/20 09:00 Dose: 20 mg Documented by: Heparin Sodium (Porcine) (Heparin 5,000 Unit/1 Ml Vial) 5,000 unit SUB-Q Q12HR [facility] Last Admin: 10/22/20 22:07 Dose: 5,000 unit Documented by: Levetiracetam (Levetiracetam 500 Mg/5 Ml Oral Liqd) 1,000 mg PO BID [facility] Last Admin: 10/22/20 22:07 Dose: 1,000 mg Documented by: Metoprolol Succinate (Metoprolol Succinate Xl 25 Mg Tab) 25 mg PO DAILY@0800 [facility] Last Admin: 10/22/20 08:58 Dose: 25 mg Documented by: Ondansetron HCl (Ondansetron 4 Mg/2 Ml Inj) 4 mg IV Q6H PRN PRN Reason: Nausea And Vomiting Last Admin: 10/19/20 01:20 Dose: 4 mg Documented by: Oxycodone/Acetaminophen (Oxycodone /Acetaminophen 5-325mg Tab) 1 tab PO Q6H PRN PRN Reason: Pain, Moderate (4-6) Last Admin: 10/22/20 11:49 Dose: 1 tab Documented by: Pantoprazole Sodium (Pantoprazole 40 Mg Tab) 40 mg PO DAILY [facility] Last Admin: 10/22/20 09:00 Dose: 40 mg Documented by: Sodium Chloride (Sodium Chloride 0.9% 10 Ml Flush Syringe) 10 ml IV BID [facility] Last Admin: 10/22/20 22:16 Dose: 10 ml Documented by: Sodium Chloride (Sodium Chloride 0.9% 10 Ml Flush Syringe) 10 ml IV PRN PRN PRN Reason: LINE FLUSH Mental Status Exam - Vital signs Last Vital Signs Temp 98.1 F 10/23/20 07:46 Pulse 86 10/23/20 07:46 Resp 18 10/23/20 07:46 BP 120/73 10/23/20 07:46 Pulse Ox 98 10/23/20 07:46 Results Result Diagrams: 10/22/20 04:24 10/22/20 04:24 All other labs normal. Assessment and Plan - Psychiatric problem (1) AMS (altered mental status) Current Visit: Yes Status: Acute
[2020-10-23] MEDS: levETIRAcetam 500 MG/5 ML ORAL LIQD PO SCH ×2 (10:11→21:03)
[2020-10-23] MEDS: PANTOPRAZOLE 40 MG TAB PO SCH (10:11)
[2020-10-23] MEDS: ASPIRIN 325 MG TAB PO SCH (10:12)
[2020-10-23] MEDS: ALPRAZolam 0.5 MG TAB PO SCH ×2 (10:12→21:04)
[2020-10-23] MEDS: CITALOPRAM 20 MG TAB PO SCH (10:12)
[2020-10-23] MEDS: METOPROLOL SUCCINATE XL 25 MG TAB PO SCH (10:12)
[2020-10-23] MEDS: amLODIPine 5 MG TAB PO SCH (10:12)
[2020-10-23] MEDS: HEPARIN 5,000 UNIT/1 ML VIAL SUB-Q SCH ×2 (10:12→21:03)
--- NOTE | 2020-10-23 11:37 | Progress Note ---
Assessment and Plan Assessment and Plan #Seizure Recurrent vs anxiety related attack ? -doubt to be related to anxiolytic withdrawal pt, show no sign of withdrawal , no seizure since admission -Initiate seizure precautions, fall precaution, aspiration precaution -EEG showed diffuse slowing -PT/ OT eval pending -IV Ativan as needed -1 g IV or PO Keppra twice daily-- make PO -Brain MRI with Qd is remarkable for remote left temporal,parietal and or occipital lobe -CTA brain and neck are pending # Confusion noted on exam today and yesterday ?Conductive aphasia can not be excluded - MRI brain as above -mantain ASA and lipitor -US carotid is remarkable for <50% stenosis on right and 50-60% stenosis on left and complet occlusion left ECA -will order CTA brain and neck -Echo is pending -review old record from [facility] when available ?? ++ she is with significant speech impairment she will benefit from ST . 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 Seizure Interval history: pt. continues to be confused and or aphasic she is unable to answear questions appropriately she repeat sentence again and again with the possibility of fluent aphasia can not be excluded !! MRI brain is done with finding is consistent with her exam findings of aphasia / possibly conductive she is with remote encephalomalacia left temporal ,parietal and occipital lobe CTA brain and neck are stil not done she is on ASA and lipitor echo not available had one in last admission Objective - Vital Sign Vital Signs - 12hr 10/23/20 10/23/20 10/23/20 03:57 07:46 10:12 Temperature 98.0 F 98.1 F Pulse Rate 57 L 86 78 Respiratory 18 18 Rate Blood Pressure 121/65 120/73 O2 Sat by Pulse 86 98 Oximetry - General Apperance Constitutional: comfortable - EENT EENT: PERRL - Respiratory Respiratory: lungs clear, rhonchi - Cardiovascular Cardiovascular: regular rate, normal S1, normal S2 Extremities: no peripheral edema bilat - Gastrointestinal Gastrointestinal: normoactive bowel sounds - Integumentary Integumentary: normal - Neurologic Cranial nerve examination: PERRL, EOMI Reflex and gait examination: other (slight right pronator drift upper right , gait not done.) - Laboratory Findings CBC and BMP: 10/22/20 04:24 10/22/20 04:24 Abnormal Lab Findings: Abnormal Labs 10/18/20 10/18/20 10/20/20 21:07 Unknown 04:49 MCHC 35 H Lymph % (Auto) 36.5 H [place] % (Auto) 9.7 H Seg Neutrophils % Seg Neuts % (Manual) 39.0 L Lymphocytes % (Manual) 55.0 H Potassium Calcium Urine WBC (Auto) 9.0 H 10/22/20 10/22/20 04:24 04:24 MCHC Lymph % (Auto) 53.2 H [place] % (Auto) 9.8 H Seg Neutrophils % 35.8 L Seg Neuts % (Manual) Lymphocytes % (Manual) Potassium 3.5 L Calcium 8.3 L Urine WBC (Auto)
--- NOTE | 2020-10-23 23:14 | Cat Scan Report ---
CT angio head INDICATION / CLINICAL INFORMATION: 65 years Female; CVA. TECHNIQUE: Thin cut axial images obtained through the head during IV bolus contrast administration. S agittal, coronal, and 3 plane MIP reconstructions performed by the technologist. NASCET type criteria used evaluate stenoses. Automated exposure control utilized for radiation reduction purposes. COMPARISON: None available. FINDINGS: INTERNAL CAROTID ARTERIES: No significant narrowing appreciated.: Atherosclerotic disease noted. VERTEBROBASILAR SYSTEM: No significant narrowing appreciated. DISTAL BRANCHES: Distal branches of the anterior, middle, and posterior cerebral arteries are fairly symmetric in appearance and number. However, there is narrowing in the proximal to mid M1 region on the right, with distal MCA branches o n the right being less well visualized when compared with the left. P1 segment on the right is hypoplastic, which is normal variant. ANEURYSM: None identified. ADDITIONAL FINDINGS: Old, branch MCA infarcts seen in the posterior left frontal region and in the la teral left temporal region. Old, calcified, cortical laminar necrosis seen in some of these areas as well. Small corpus striatal type infarct is seen anteriorly in the gangliocapsular region on the right. IMPRESSION: Narrowing seen in the right MCA territory as described above. Signer Name: Blake Bolden MD, III Signed: 10/23/2020 11:09 PM Workstation Name: [email or web address]
--- NOTE | 2020-10-23 23:29 | Cat Scan Report ---
CT angio neck INDICATION / CLINICAL INFORMATION: 65 years Female; cva. TECHNIQUE: Thin cut axial images obtained through the head during IV bolus contrast administration. S agittal, coronal, and 3 plane MIP reconstructions performed by the technologist. NASCET type criteria used evaluate stenoses. All CT scans at this location are performed using CT dose reduction for ALAR A by means of automated exposure control. COMPARISON: None available. FINDINGS: ARCH: Normal aortic arch branching suggested. CAROTID ARTERIES: The visualized common and internal carotid arteries are patent. There is a focal area of mild narrowing in the proximal left common carotid artery approximately 2 cm distal to its origin-not hemodynamically significant. VERTEBRAL ARTERIES: Codominant vertebral system seen. No significant stenosis appreciated. ADDITIONAL FINDINGS: Port-A-Cath noted on the right. Partial opacification seen in the ethmoids. Central line noted on the right. IMPRESSION: No significant stenosis appreciated on this CTA of the neck. Signer Name: Blake Bolden MD, III Signed: 10/23/2020 11:25 PM Workstation Name: [id number], [place] [id number]
[2020-10-24] MEDS: METOPROLOL SUCCINATE XL 25 MG TAB PO SCH (08:41)
--- NOTE | 2020-10-24 10:18 | Discharge Summary ---
Providers - Providers Date of Admission: 10/21/20 12:44 Date of discharge: 10/24/20 Attending physician: DIONI GAINES MD 10/18/20 23:44 Consult to Physician [CONS] Routine Comment: Consulting Provider: RICHARD BROWN Physician Instructions: Reason For Exam: seizure 10/19/20 00:52 Consult to Case Management [CONS] Routine Services Needed at Discharge: Other Notified:: CASE MANAGEMENT Additional Physician Instructions: Assistance with pharmacy to fill prescription for Xanax 10/21/20 08:13 psychiatry consult [Consult to Mental Health] [CONS] Routine Reason For Exam: Anxiety and depression 10/22/20 12:00 Physical Therapy Evaluation and Treat [CONS] Routine Comment: Reason For Exam: Evaluate and treat Primary care physician: [facility] Hospitalization Reason for admission: Seizure disorder, Impaired speech Condition: Stable Hospital course: History of present illness: 65-year-old -[place] female who is a current resident of [facility] with history of CVA (mild right-sided residual deficits), HTN, seizure disorder, hypertension, anxiety and depression who presents [facility] ED via EMS s/p seizure activity. Both EMS and patient reports chronic use of Xanax 0.5 mg twice daily, however patient has not had her usual dose of Xanax in the past 2 days due to insurance issues. Patient had witnessed seizure (unsure of time before termination), EMS was called. Upon arrival to the facility patient was given 5 mg IM Versed by EMS. Endorses compliance with Keppra. At the time of my examination patient is sitting up in stretcher, alert and oriented x4, able to communicate wants/needs and answer questions. She has no f urther complaints at this time. Denies fever, chills, nausea, vomiting, abdominal pain, constipation, diarrhea, dysuria, hematuria, recent fall recent head injury/trauma, or recent sick contacts. 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 -Follow-up echocardiogram -Lipid profile -Continue Lipitor 40 mg daily Benzodiazepine withdrawal Hx anxiety/depression -Chronic use of Xanax 0.5 mg twice daily -Abrupt cessation of chronic BZD use x2 days due to insurance issues -Resume Xanax home dose -Case management consult placed -Psych consultation HTN -Monitor BP -Resume home hypertensive meds DVT and GI PPX -On heparin and Protonix Patient was evaluated by neurology 10/22/2020 -Patient is doing well, no further seizures. Continue current medication regimen. -Neurology evaluated and recommend mental health evaluation. -We will follow MRI of the brain. Disposition is per clinical course. 10/23/2020 -We will follow neurology recommendation -PT OT evaluation CTA head and neck was done and showed narrowing of the right MCA territory, discussed with Dr. Brown and he said patient can be discharged home with aspirin, Keppra speech therapy evaluation. Disposition: DC-01 TO HOME OR SELFCARE Final Discharge Diagnosis (Prints w/discharge instructions): seizure. Impaired speech Time spent for discharge: 35 minutes - Discharge Diagnoses (1) AMS (altered mental status) Status: Acute (2) Seizures Status: Acute (3) Hyperlipidemia Status: Chronic Qualifiers: Hyperlipidemia type: mixed hyperlipidemia Qualified Code(s): E78.2 - Mixed hyperlipidemia (4) Hypertension Status: Chronic Qualifiers: Hypertension type: essential hypertension Qualified Code(s): I10 - Essential (primary) hypertension Core Measure Documentation - Palliative Care Palliative Care/ Comfort Measures: Not Applicable - Core Measures Any of the following diagnoses?: none Exam - Physical Exam Narrative exam: Not in cardiopulmonary distress. The patient appeared well nourished and normally developed. Vital signs as documented. Head exam is unremarkable. No scleral icterus . Neck is without jugular venous distension, thyromegaly, or carotid bruits. Lungs are clear to auscultation. Cardiac exam reveals regular rate and Rhythm. Abdominal exam reveals normal bowel sounds, nontender, no organomegaly. Extremities are nonedematous and both femoral and pedal pulses are normal. 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 No focal neurologic deficit. - Constitutional Vitals: Temp Pulse Resp BP Pulse Ox 97.9 F 85 20 126/56 97 10/24/20 08:13 06/03/21 09:00 10/24/20 08:13 10/24/20 08:13 10/24/20 09:42 Plan Activity: advance as tolerated Weight Bearing Status: Weight Bear as Tolerated Diet: low cholesterol, low salt Additional Instructions: Outpatient speech therapy evaluation Follow up with: PRIMARY CARE, [Primary Care Provider] - 3-5 Days
[2020-10-24] MEDS: ONDANSETRON 4 MG/2 ML INJ IV PRN (11:27)
[2020-10-24 12:13] VITALS: BP 122/53
--- NOTE | 2020-10-24 13:15 | Progress Note ---
Assessment and Plan Assessment and Plan #Seizure Recurrent vs anxiety related attack ? -doubt to be related to anxiolytic withdrawal pt, show no sign of withdrawal , no seizure since admission -Initiate seizure precautions, fall precaution, aspiration precaution -EEG showed diffuse slowing -PT/ OT eval pending -IV Ativan as needed -1 g IV or PO Keppra twice daily-- make PO -Brain MRI with Qd is remarkable for remote left temporal,parietal and or occipital lobe -CTA brain and neck are pending # Confusion noted on exam today and yesterday ?Conductive aphasia can not be excluded - MRI brain as above -mantain ASA and lipitor -US carotid is remarkable for <50% stenosis on right and 50-60% stenosis on left and complet occlusion left ECA -CTA brain and neck are unremarkable -Echo is pending -review old record from [facility] when available ?? ++ she is with significant speech impairment she will benefit from ST . 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 Seizure Interval history: pt. continues to be confused and or aphasic she is unable to answear questions appropriately she repeat sentence again and again with the possibility of fluent aphasia can not be excluded !! MRI brain is done with finding is consistent with her exam findings of aphasia / possibly conductive she is with remote encephalomalacia left temporal ,parietal and occipital lobe CTA brain and neck are unremarkable she is on ASA and lipitor Objective - Vital Sign Vital Signs - 12hr 10/24/20 10/24/20 10/24/20 03:52 08:13 08:41 Temperature 98.0 F 97.9 F Pulse Rate 66 56 L 56 L Respiratory 18 20 Rate Blood Pressure 97/59 126/56 O2 Sat by Pulse 94 94 Oximetry 10/24/20 10/24/20 10/24/20 09:00 09:42 11:55 Temperature 98.0 F Pulse Rate 85 58 L Respiratory 18 Rate Blood Pressure 122/53 O2 Sat by Pulse 97 96 Oximetry - General Apperance Constitutional: comfortable - EENT EENT: PERRL, mucous membranes moist - Respiratory Respiratory: chest non-tender, lungs clear, rhonchi - Cardiovascular Cardiovascular: normal S1, normal S2 Extremities: no peripheral edema bilat, no clubbing, cyanosis - Gastrointestinal Gastrointestinal: normoactive bowel sounds - Integumentary Integumentary: normal - Neurologic Cranial nerve examination: PERRL, EOMI Speech examination: intact, sensory aphasia Detailed motor examination: other (slight right side weakness) - Laboratory Findings CBC and BMP: 10/22/20 04:24 10/22/20 04:24 Abnormal Lab Findings: Abnormal Labs 10/18/20 10/18/20 10/20/20 21:07 Unknown 04:49 MCHC 35 H Lymph % (Auto) 36.5 H [place] % (Auto) 9.7 H Seg Neutrophils % Seg Neuts % (Manual) 39.0 L Lymphocytes % (Manual) 55.0 H Potassium Calcium Urine WBC (Auto) 9.0 H 10/22/20 10/22/20 04:24 04:24 MCHC Lymph % (Auto) 53.2 H [place] % (Auto) 9.8 H Seg Neutrophils % 35.8 L Seg Neuts % (Manual) Lymphocytes % (Manual) Potassium 3.5 L Calcium 8.3 L Urine WBC (Auto)
[2020-10-24] MEDS: levETIRAcetam 500 MG/5 ML ORAL LIQD PO SCH (13:33)
[2020-10-24] MEDS: ALPRAZolam 0.5 MG TAB PO SCH (13:33)
[2020-10-24] MEDS: amLODIPine 5 MG TAB PO SCH (13:33)
[2020-10-24] MEDS: CITALOPRAM 20 MG TAB PO SCH (13:33)
[2020-10-24] MEDS: ASPIRIN 325 MG TAB PO SCH (13:33)
[2020-10-24] MEDS: HEPARIN 5,000 UNIT/1 ML VIAL SUB-Q SCH (13:34)
[2020-10-24] MEDS: PANTOPRAZOLE 40 MG TAB PO SCH (13:34)
== END 2020-10-24 16:15 | disposition home or self-care (01) | DRG 101 ==
LOC: ED 20:16 → 4A 23:50 → OBSVTOIN 10-21 12:44
PROVIDERS: ADMIT Hospitalist; ATTEND Internal Medicine
DX: G40.909 Epilepsy, unspecified, not intractable, without status epilepticus (principal); F13.239 Sedative, hypnotic or anxiolytic dependence with withdrawal, unspecified; F41.8 Other specified anxiety disorders; Z20.822 Contact with and (suspected) exposure to COVID-19; I11.0 Hypertensive heart disease with heart failure; K21.9 Gastro-esophageal reflux disease without esophagitis; E78.5 Hyperlipidemia, unspecified; E78.00 Pure hypercholesterolemia, unspecified; I50.9 Heart failure, unspecified; Z79.899 Other long term (current) drug therapy; Z79.82 Long term (current) use of aspirin; Z79.01 Long term (current) use of anticoagulants; Z82.49 Family history of ischemic heart disease and other diseases of the circulatory system
CPT/HCPCS: 36415; 70496; 70498; 70553; 80048; 80061; 81001; 83036; 84443; 85007; 85025; 87086; 93880; 95819; 96365; 96366; G0378; A9270-GY; A9575; J1644; J1953; J2405; Q9967; U0003

== ENCOUNTER 2021-07-04 19:49 | Emergency (ER) | payer MEDICARE ==
--- NOTE | 2021-07-04 21:01 | Emergency Department Report ---
ED Seizure HPI - General Stated Complaint: SEIZURES Time Seen by Provider: 07/04/21 20:54 - History of Present Illness Initial Comments: Patient was brought in by EMS secondary to seizures. She is somewhat confused and postictal and cannot provide a complete history at this time. She does state that she bit her tongue. She does not really have any recollection of any other events. EMS report is not immediately available. Per report later from the family, patient is in a care home. She does have a history of seizures. She occasionally does get breakthrough seizures. Her dosage of medication has not changed recently. She has not been ill and missed her dose of medication. This was a single, generalized tonic-clonic seizure. - Related Data Home Medications Medication Instructions Recorded Confirmed Last Taken AtorvaSTATin [Lipitor] 40 mg PO QHS 12/20/19 10/19/20 Unknown Lansoprazole [Prevacid] 15 mg PO QDAY 12/20/19 10/19/20 Unknown amLODIPine 5 mg PO DAILY 12/20/19 10/19/20 Unknown Previous Rx's Medication Instructions Recorded Last Taken Type Aspirin 325 mg PO QDAY tablet 12/21/19 Unknown Rx Metoprolol Xl [Metoprolol 25 mg PO DAILY tablet 12/21/19 Unknown Rx SUCCINATE ER TAB] Pantoprazole [Protonix TAB] 40 mg PO DAILY tablet 12/21/19 Unknown Rx Verapamil ER [Calan SR] 180 mg PO QHS tablet 12/21/19 Unknown Rx levETIRAcetam [Keppra] 1,500 mg PO BID 60 Days 12/21/19 Unknown Rx Ondansetron [Zofran ODT TAB] 1 tab PO Q8HR PRN #5 tab.rapdis 02/26/20 Unknown Rx ALPRAZolam [Xanax TAB] 0.5 mg PO BID #14 tablet 10/24/20 Unknown Rx Allergies Allergy/AdvReac Type Severity Reaction Status Date / Time No Known Allergies Allergy Verified 10/18/20 22:12 ED Review of Systems ROS: Stated complaint: SEIZURES Other details as noted in HPI Comment: Unobtainable due to pts medical conditions (Patient is confused and postictal) ED Past Medical Hx - Past Medical History Hx Hypertension: Yes Hx CVA: Yes (R sided deficits) Hx Congestive Heart Failure: Yes Hx Seizures: Yes Hx Psychiatric Treatment: Yes (anxiety; depression) Additional medical history: high cholesterol - Social History Smoking Status: Unknown if ever smoked - Medications Home Medications: Home Medications Medication Instructions Recorded Confirmed Last Taken Type AtorvaSTATin [Lipitor] 40 mg PO QHS 12/20/19 10/19/20 Unknown History Lansoprazole [Prevacid] 15 mg PO QDAY 12/20/19 10/19/20 Unknown History amLODIPine 5 mg PO DAILY 12/20/19 10/19/20 Unknown History Aspirin 325 mg PO QDAY tablet 12/21/19 10/19/20 Unknown Rx Metoprolol Xl [Metoprolol 25 mg PO DAILY tablet 12/21/19 10/19/20 Unknown Rx SUCCINATE ER TAB] Pantoprazole [Protonix TAB] 40 mg PO DAILY tablet 12/21/19 10/19/20 Unknown Rx Verapamil ER [Calan SR] 180 mg PO QHS tablet 12/21/19 10/19/20 Unknown Rx levETIRAcetam [Keppra] 1,500 mg PO BID 60 Days 12/21/19 10/19/20 Unknown Rx Ondansetron [Zofran ODT TAB] 1 tab PO Q8HR PRN #5 tab.rapdis 02/26/20 10/19/20 Unknown Rx ALPRAZolam [Xanax TAB] 0.5 mg PO BID #14 tablet 10/24/20 Unknown Rx ED Physical Exam - General Limitations: Altered Mental Status (Post ictal), Other (Pulse ox was noted and hypoxic. This improved with treatment.) General appearance: alert, in no apparent distress, obese - Head Head exam: Present: atraumatic, normocephalic - Eye Eye exam: Present: normal appearance, EOMI. Absent: scleral icterus - ENT ENT exam: Present: mucous membranes moist, normal external ear exam, other (There is a contusion to the tip of the tongue on the right) - Neck Neck exam: Present: normal inspection. Absent: meningismus - Respiratory Respiratory exam: Present: normal lung sounds bilaterally. Absent: respiratory distress - Cardiovascular Cardiovascular Exam: Present: regular rate, normal rhythm - GI/Abdominal GI/Abdominal exam: Present: soft. Absent: distended, tenderness - Extremities Exam Extremities exam: Present: normal capillary refill - Back Exam Back exam: Absent: CVA tenderness (R), CVA tenderness (L) - Neurological Exam Neurological exam: Present: alert, altered (Confused), motor sensory deficit (Patient has weakness involving the right arm and right leg which she states is from a prior stroke), other (Expressive aphasia) - Psychiatric Psychiatric exam: Present: normal affect, normal mood - Skin Skin exam: Present: warm, dry ED Course - Reevaluation(s) Reevaluation #1: 07/04/21 20:59 IV and labs were ordered. Old records reviewed. Reevaluation #2: 07/04/21 23:36 Family was present. Patient is at baseline according to them. Labs are noted and the patient was discharged. ED Medical Decision Making - Lab Data Result diagrams: 07/04/21 21:05 07/04/21 21:05 Rhythm strip: Normal sinus rhythm without ectopy per monitor observe 10 seconds. - Medical Decision Making Patient presented by EMS with a breakthrough seizure. There is no evidence of metabolic derangement currently. She is not had status epilepticus, she has only had a single isolated seizure and has returned to baseline. Patient has residual right-sided weakness from prior stroke. She does not have any new deficits suggestive of new stroke. There is no visible sign of head trauma that would have suggested subdural epidural hematomas. Patient does not have any obvious infectious source or pathology suggestive of meningitis. Patient was comfortable going back to the care home and family was comfortable with this plan. Critical Care Time: No Critical care attestation.: If time is entered above; I have spent that time in minutes in the direct care of this critically ill patient, excluding procedure time. ED Disposition Clinical Impression: Seizures Disposition: 01 HOME / SELF CARE / HOMELESS Is pt being admited?: No Condition: Stable Instructions: Seizure, Adult, [id number] Additional Instructions: Continue home medication. Drink any water. Follow-up with the patient's regular doctor or neurologist for seizure medication adjustment.
[2021-07-04] MEDS ORDERED: SODIUM CHLORIDE 0.9% 1000 ML 1,000 ML IV ONE (21:02)
[2021-07-04 21:33] LABS: Hemoglobin 13.7 gm/dl (10.1-14.3); Mean Corpuscular HGB Conc 33 % (30-34); Mean Corpuscular Volume 82 fl (79-97); Platelet Count 333 K/mm3 (140-440); Red Blood Count 4.98 M/mm3 (3.65-5.03); Red Cell Distribution Width 14.5 % (13.2-15.2)
[2021-07-04 21:39] LABS: Blood Urea Nitrogen 13 mg/dL (7-17); Calcium 8.8 mg/dL (8.4-10.2); Hemolysis Index 23
[2021-07-04 21:55] LABS: BUN/Creatinine Ratio 19
[2021-07-05 16:22] VITALS: BP 130/86
== END 2021-07-05 15:30 | disposition home or self-care (01) ==
LOC: ED 19:49
DX: R56.9 Unspecified convulsions (principal); F41.9 Anxiety disorder, unspecified; F32.9 Major depressive disorder, single episode, unspecified; E78.00 Pure hypercholesterolemia, unspecified; I11.0 Hypertensive heart disease with heart failure; I50.9 Heart failure, unspecified; Z79.82 Long term (current) use of aspirin; Z79.899 Other long term (current) drug therapy
CPT/HCPCS: 36415; 80048; 83735; 85027; 96360; 99284; J7030; Q0162